=== PATIENT | female | born 1950 | race Caucasian/White ===

== ENCOUNTER 2017-08-29 17:45 | Inpatient (IN) | payer MEDICARE, OTHER ==
[~2017-08-29] VITALS: Ht 160 cm; Wt 100.7 kg
[~2017-08-29 17:45] MED LIST: ACID REDUCER150 MG PO; BUPROPION HCL100 MG PO; BUPROPION HCL200 MG PO; CYCLOBENZAPRINE10 MG PO; FLUZONE IM; LEVOTHROID112 MCG PO; LEXAPRO20 MG PO; LIPITOR20 MG PO; LISINOPRIL10 MG PO; NORCO 5-325 TA1 EACH PO; PERCOCET 5-3251 EACH PO; SERTRALINE HCL100 MG PO
--- NOTE | 2017-08-30 18:05 | EKG ---
[facility] [address] [facility] [place] [address] Signed Sinus tachycardia Low voltage QRS Left posterior fascicular block Abnormal ECG No previous ECGs available Confirmed by PURNIMA GARCIA MD ([id number]) on 08/30/2017 6:05:29 PM Electronically Signed By: PURNIMA GARCIA MD 08/30/17 1805 PATIENT NAME: JANICE AYALA KIA Electrocardiogram DATE OF : 52 PHYSICIAN: PURNIMA GARCIA MD REPORT #: [id number] REPORT IS CONFIDENTIAL AND NOT TO BE RELEASED WITHOUT AUTHORIZATION
--- NOTE | 2017-08-31 08:53 | CONS ---
[facility] [address] [place], [place] [address] Signed DATE OF CONSULTATION: 08/30/2017 CHIEF COMPLAINT: Right pyelonephritis, secondary to partially obstructing large right renal calculus. HISTORY OF PRESENTING ILLNESS: Ms. Ayala is a very pleasant 66-year-old female with no previous history of nephrolithiasis, who presented to the emergency department yesterday evening with a 2-week history of right-sided back and flank pain. She describes this pain as right-sided back pain that radiates to her hip and her ribs. She denied any fevers or chills. However, she was experiencing some anorexia. No nausea or vomiting symptoms, however, she did notice some sudden onset of urgency of urination, but no issues with dysuria. She also denies any hematuria symptoms. Upon presentation to the emergency department, she was evaluated via CT scan and found to have a 1.6 x 1.2 right renal calculus that appeared to be intermittently obstructing the right collecting system. Also on presentation, she was found to have leukocytosis, low blood pressures, and elevated creatinine. She was admitted by Dr. Carleen Rosado for sepsis and remained stable overnight. This morning, she is feeling better, however, she is still tachycardic and mildly hypotensive. REVIEW OF SYSTEMS: All 14-point review of systems were completed and all negative except as listed above. PAST MEDICAL HISTORY: Significant for stage 3 chronic kidney disease, hypertension, diabetes, hypothyroidism, depression, and obesity. PAST SURGICAL HISTORY: The patient is status post hysterectomy and bariatric surgery. She denies any previous history of kidney stone related procedures. SOCIAL HISTORY: The patient lives alone and denies any alcohol or tobacco use. FAMILY HISTORY: Noncontributory at this time. DRUG ALLERGIES: Ibuprofen. MEDICATIONS: Bupropion 100 mg p.o. b.i.d., Lexapro 20 mg daily, atorvastatin 20 mg p.o. at bedtime, Flexeril 10 mg p.o. t.i.d., ranitidine 150 mg p.o. b.i.d., lisinopril 10 mg p.o. daily, levothyroxine 112 mcg p.o. daily, and Percocet 5/325 one to two tablets p.o. q.6 hours p.r.n. pain. PHYSICAL EXAMINATION: CURRENT VITAL SIGNS: Her pulse is in the 100s. She is currently Electronically Signed By: SANGITA WEBB MD 08/31/17 0853 PATIENT NAME: JANICE AYALA CONSULTATION DATE OF : 52 PHYSICIAN: SANGITA WEBB MD REPORT #: [id number] REPORT IS CONFIDENTIAL AND NOT TO BE RELEASED WITHOUT AUTHORIZATION [facility] [address] [place], [place] [address] Signed afebrile. Respirations run from around 12 to 16. Blood pressure is currently running in the low 100 systolic. Oxygen saturations are at 99%. GENERAL: She is awake and alert, in no acute distress. She is sitting up in bed and answering questions appropriately. HEART: Reveals tachycardia, but is otherwise normal. LUNGS: Clear to auscultation bilaterally. ABDOMEN: Obese, but is soft and nondistended. She has some mild tenderness over the right flank area. She is moving all of her extremities equally. LABORATORY DATA: On admission, her white blood cell count was 30.9, hemoglobin 11.7, hematocrit 34.6, and platelets 247. Urinalysis revealed greater than 50 white blood cells per high-powered field, 2+ urine bacteria, 100 protein, negative ketones, and negative nitrites. Her urine culture is pending. Chemistry performed yesterday reveals a sodium 131, potassium 5.5, BUN of 34, creatinine 2.99, and a lactate of 2.6. IMAGING: Her chest x-ray was performed which revealed no acute cardiopulmonary abnormality. Her CAT scan as stated above, reveals no left renal calculi, but there is a 1.6 cm cyst located in the upper pole of the right kidney. There is another cyst located medially in the left kidney, but of most significance is a 1.6 x 1.2 x 1.2 cm stone in the right renal pelvis that is in position to cause intermittent obstruction. Also, noted a significant perinephric stranding around the right kidney. Both ureters were found to be normal down to the level of the bladder. ASSESSMENT: 1. Pyelonephritis, secondary to intermittently obstructing large right renal calculus. 2. Severe sepsis, secondary to acute pyelonephritis. 3. Tcezf-fj-tpswbbq kidney injury. PLAN: The patient has been n.p.o. since last night and has been given appropriate IV antibiotics by Dr. Rosado. I have discussed my plan today for her to undergo cystoscopy with right ureteral stent insertion to relieve the intermittent obstruction of the right kidney due to this large 1.6 cm renal calculus. The risks and benefits of the procedure were discussed with the patient today and she has agreed to proceed. When she is successfully stented, she will continue IV antibiotics and will likely be converted to culture appropriate oral antibiotics once her urine and blood cultures return. Overall, due to the size of stone, the patient will likely require a right-sided percutaneous nephrolithotomy for definitive management of the stone. I explained this to the patient and her family in detail today and answered all their questions. For now, however, we will focus on clearing the patient of active infection and getting her Electronically Signed By: SANGITA WEBB MD 08/31/17 0853 PATIENT NAME: JANICE AYALA CONSULTATION DATE OF : 52 PHYSICIAN: SANGITA WEBB MD REPORT #: [id number] REPORT IS CONFIDENTIAL AND NOT TO BE RELEASED WITHOUT AUTHORIZATION [address] [place], [place] [address] Signed stabilized. In the interim, I will look into who she can see for definitive management of her stone in the future. MD SYDNEY Rivera/MODL /[id number] Electronically Signed By: SANGITA WEBB MD 08/31/17 0853 PATIENT NAME: JANICE AYALA CONSULTATION DATE OF : 52 PHYSICIAN: SANGITA WEBB MD REPORT #: [id number] REPORT IS CONFIDENTIAL AND NOT TO BE RELEASED WITHOUT AUTHORIZATION
--- NOTE | 2017-08-31 08:53 | OR ---
[facility] [address] [place], [place] [address] Signed DATE OF OPERATION: 08/30/2017 SURGEON: Sangita Webb MD PREOPERATIVE DIAGNOSES: 1. Urosepsis due to right pyelonephritis. 2. Intermittently obstructing large right renal calculus. POSTOPERATIVE DIAGNOSES: 1. Urosepsis due to right pyelonephritis. 2. Intermittently obstructing large right renal calculus. NAME OF PROCEDURE: Diagnostic cystoscopy with right ureteral stent insertion. ANESTHESIA: MAC. ESTIMATED BLOOD LOSS: None. COMPLICATIONS: None. SPECIMENS: None. DRAINS: A 6 x 24 cm double-J ureteral stent inserted into the right ureter and a 16-Italian temperature probe catheter inserted into the bladder to gravity drainage. INDICATIONS FOR PROCEDURE: Ms. Ayala is a very pleasant 66-year-old female with no previous history of nephrolithiasis, presented to the emergency department last night with a 2-week history of right-sided back and flank discomfort along with lethargy and poor appetite. She underwent a CT scan, which revealed a large 1.6 cm stone intermittently obstructing the right ureteropelvic junction of the right kidney. CT scan also did reveal no evidence of hydronephrosis, however, did reveal some evidence of perinephric stranding around the right kidney. She also presented to the emergency department hypotensive and tachycardic with a lactic acid of 2.6. She was also noted to be in acute on chronic renal failure. She was admitted by Dr. Rosado and given immediate IV fluid resuscitation along with IV antibiotics. She presents now this morning to undergo cystoscopy with right ureteral stent insertion for decompression of the right collecting system. OPERATIVE FINDINGS: 1. On cystoscopy, there were no evidence of any suspicious masses, lesions, or stones within the bladder. Bilateral ureteral orifices are in their normal anatomic location and effluxing clear urine. 2. A 6 x 24 cm contour double-J ureteral stent was inserted into the right ureter under Electronically Signed By: SANGITA WEBB MD 08/31/17 0853 PATIENT NAME: JANICE AYALA OPERATIVE REPORT DATE OF : 52 PHYSICIAN: SANGITA WEBB MD REPORT #: [id number] REPORT IS CONFIDENTIAL AND NOT TO BE RELEASED WITHOUT AUTHORIZATION [facility] [address] [place] [id number] Signed direct visualization with a [id number] amount of resistance. Ultimately, I was able to get the stent in good position with an adequate proximal coil within the right renal pelvis. DESCRIPTION OF PROCEDURE: After informed consent was obtained, the patient was taken back to the operating room. She was transferred from the [facility] to the operating room table, where MAC anesthesia was induced. She was placed in the dorsal lithotomy position and her genitalia were prepped and draped in a standard sterile fashion. Using a 30-degree lens on a 22-Italian introducer, a rigid cystoscope was inserted through the urethra and into her bladder under direct visualization. Panendoscopic views of the bladder were then obtained. Please see the findings. Attention was turned to the right ureteral orifice. A 0.035 Sensor wire was inserted through the ureteral orifice and up into the right ureter. Fluoroscopy confirmed adequate placement of the wire. Over the wire, a 6 x 24 cm double-J ureteral stent was inserted into the right ureter under direct visualization with a mild amount of resistance. Once the stent was up, I was able to confirm adequate placement via the presence of a proximal coil in the right renal pelvis on fluoroscopy. An adequate distal coil was seen on cystoscopy. The patient's bladder was then drained and a temperature probe catheter was reinserted into her bladder. The procedure was then terminated. The patient tolerated the procedure well without any complications. She will now be transferred to the postanesthesia care unit in stable condition. DISPOSITION: I discussed the details of today's procedure with the patient's family and answered all of their questions. Her diabetic diet will be advanced slowly as tolerated. I anticipate the patient will remain on IV antibiotics at least until she remains afebrile for greater than 24 hours or her cultures return. She will likely be converted to oral antibiotics on discharge. The plan is for the patient to return to clinic in 2-3 weeks with a urinalysis check and to discuss the next plan of care for definitive treatment of her large 1.6 x 1.2 cm right renal calculus. Sangita Webb MD AR/MODL Electronically Signed By: SANGITA WEBB MD 08/31/17 0853 PATIENT NAME: JANICE AYALA OPERATIVE REPORT DATE OF : 52 PHYSICIAN: SANGITA WEBB MD REPORT #: [id number] REPORT IS CONFIDENTIAL AND NOT TO BE RELEASED WITHOUT AUTHORIZATION [address] [address] Signed /[id number] Electronically Signed By: SANGITA WEBB MD 08/31/17 0853 PATIENT NAME: JANICE AYALA KIA OPERATIVE REPORT DATE OF : 52 PHYSICIAN: SANGITA WEBB MD REPORT #: [id number] REPORT IS CONFIDENTIAL AND NOT TO BE RELEASED WITHOUT AUTHORIZATION
[2017-08-31] MEDS ORDERED: LEVOTHYROXINE88 MCG PO (10:42)
[2017-08-31] MEDS ORDERED: DIAZEPAM5 MG PO (10:42)
[2017-08-31] MEDS ORDERED: BUPROPION HCL100 M1 PO (10:44)
--- NOTE | 2017-09-01 13:13 | PR ---
[facility] [address] [facility] [place] [address] Signed DATE OF STUDY: 08/31/2017 SUBJECTIVE: Nursing staff reports today that the patient remained febrile overnight with a T-max of 101.7. She also remained tachycardic through the night; however, her blood pressures remained stable. This morning, the patient describes some symptoms of lethargy, but her appetite is good. She does report discomfort related to her indwelling right ureteral stent; however, it does not seem to be very severe. The nursing staff has not had any issues related to blood in her urine. OBJECTIVE: Current temperature is 101.1 degrees Fahrenheit, T-max was overnight at around 0300 hours at 101.7, pulse rate is in the 100, respiratory rate is in the 18-27, blood pressure 100 to 115 over 40s to 60s. Her pulse ox is ranging anywhere from 90% to 93% on room air. She has had a good deal of urine output, as of this morning it was 2420 mL in the last shift. On exam, she is sitting in her bedside chair. She is awake and alert and in no acute distress. She is answering all questions appropriately. Cardiovascular examination reveals a regular rhythm, but she is tachycardic. Her lungs are clear. Her abdomen is obese and soft. Her Longoria catheter is draining clear yellow urine. LABORATORY DATA: Her blood cultures growing out gram-negative bacilli in both aerobic and anaerobic bottles. White blood cell count is 18.5, down from 25.6 yesterday. Hemoglobin is 9.5, hematocrit 27.4. She still has a bandemia at 13. Her creatinine today is 2.04, down from 2.43 yesterday. ASSESSMENT: 1. Gram-negative urosepsis. 2. Large intermittently obstructing right renal calculus, postoperative day #1, status post cystoscopy with right ureteral stent insertion. PLAN: The patient will be continued to be given IV antibiotics as we await the formal culture results. She is currently eating her regular diet without issue. I have put in for followup for the patient in approximately 2-3 weeks, which I believe now the formal date is September 14. At that time, I will check her urine and then discuss options for definitive management of her large 1.6 cm right renal calculus. *Electronically Signed* 09/01/17 1313 SANGITA WEBB MD PATIENT NAME: JANICE AYALA PROGRESS NOTE DATE OF : 52 PHYSICIAN: SANGITA WEBB MD RPT #: [id number] REPORT IS CONFIDENTIAL AND NOT TO BE RELEASED WITHOUT AUTHORIZATION [facility] [address] [facility] [place], [place] [address] Signed MD SYDNEY Rivera/MODL /[id number] CC: *Electronically Signed* 09/01/17 1313 SANGITA WEBB MD PATIENT NAME: JANICE AYALA PROGRESS NOTE DATE OF : 52 PHYSICIAN: SANGITA WEBB MD RPT #: [id number] REPORT IS CONFIDENTIAL AND NOT TO BE RELEASED WITHOUT AUTHORIZATION
[2017-09-03] MEDS ORDERED: METOPROLOL SUCC25 MG PO (12:45)
[2017-09-03] MEDS ORDERED: FLUTICASONE PRO16 GM NAS (12:45)
[2017-09-03] MEDS ORDERED: BACTRIM DS TAB1 EACH PO (12:46)
== END 2017-09-04 12:55 | disposition home or self-care (01) | DRG 871 ==
LOC: ED 17:45 → CCU 21:08 → MS 09-01 10:40
PROVIDERS: Urology; ADMIT Internal Medicine
PROC: BT16ZZZ Fluoroscopy of Right Ureter (ICD-10-PCS; 2017-08-30)
PROC: 0T768DZ Dilation of Right Ureter with Intraluminal Device, Via Natural or Artificial Opening Endoscopic (ICD-10-PCS; principal; 2017-08-30 10:45)
DX: A40.3 Sepsis due to Streptococcus pneumoniae (principal); R65.20 Severe sepsis without septic shock; N12 Tubulo-interstitial nephritis, not specified as acute or chronic; N17.9 Acute kidney failure, unspecified; E87.2 Acidosis; I47.1 Supraventricular tachycardia; J96.11 Chronic respiratory failure with hypoxia; N11.1 Chronic obstructive pyelonephritis; B96.1 Klebsiella pneumoniae [K. pneumoniae] as the cause of diseases classified elsewhere; E87.5 Hyperkalemia; J32.8 Other chronic sinusitis; E78.5 Hyperlipidemia, unspecified; E03.9 Hypothyroidism, unspecified; F39 Unspecified mood [affective] disorder; G89.4 Chronic pain syndrome; I12.9 Hypertensive chronic kidney disease with stage 1 through stage 4 chronic kidney disease, or unspecified chronic kidney disease; N18.3 Chronic kidney disease, stage 3 (moderate); E11.22 Type 2 diabetes mellitus with diabetic chronic kidney disease; K21.9 Gastro-esophageal reflux disease without esophagitis
CPT/HCPCS: 00910; 36415; 71010; 74176; 74420; 80048; 80053; 81001; 82570; 83605; 83735; 84300; 84484; 85025; 87040; 87077; 87088; 87186; 93005; 93010; 93306; 94668; 94760; 97110; 97116; 97162; 97530; C2617; J0696; J1610; J1650; J2270; J2370; J2405; J2543; J2704; J3010; J3475; J7030; J7120; Q9967

== ENCOUNTER 2017-09-10 01:24 | Observation (INO) | payer MEDICARE, OTHER ==
[~2017-09-10] VITALS: Ht 160 cm; Wt 93.4 kg
[~2017-09-10 01:24] MED LIST changes: +BACTRIM DS TAB1 EACH PO; +BUPROPION HCL100 M1 PO; +DIAZEPAM5 MG PO; +FLUTICASONE PRO16 GM NAS; +LEVOTHYROXINE88 MCG PO; +METOPROLOL SUCC25 MG PO
--- NOTE | 2017-09-10 04:25 | NUR ---
66YR OLD WOMAN ADMITTED FROM ER VIA STRETCHER TO ROOM 113. PT IS ALERT, ORIENTED ABLE TO STAND AND TRANSFER ONTO BED WITH SBA. REQUESTED WARM BLANKET FOR COMFORT. DENIES NAUSEA AT THIS TIME, DENIES PAIN. POSITIONED FOR COMFORT. ORIENTED TO ROOM AND CALL LIGHT. DENIES NEED TO VOID. STATES SHE JUST WANTS TO REST. ORDERS NOTED.
--- NOTE | 2017-09-10 05:05 | NUR ---
UP TO BSC TO VOID, 200ML YELLOW URINE.
--- NOTE | 2017-09-10 07:15 | NUR ---
RECIEVED BEDSIDE REPORT FROM WALTER YUAN. PT SITTING UP IN RECLIENR. REPORTED NAUSEA, DRY HEAVED. NO EMESIS. NO ORDERS FOR ANTI NAUSEA MEDICATIONS ON EMAR. CALLED DR. BATEMAN, NOTIFIED HER OF ABOVE NOTED. RECIEVED TORB FOR ZOFRAN 4 MG IV Q 6 HOURS PRN NAUSEA.
--- NOTE | 2017-09-10 08:08 | NUR ---
PATIENT REFUSED SHOWER TODAY DO TO NOT FEELING WELL. WASHED HER FACE. NOW LAYING IN BED.
--- NOTE | 2017-09-10 09:31 | NUR ---
PT IN BED, ASSISTED FROM BED TO BEDSIDE COMMODE, 1 PERSON ASSIST WITH FWW. PT SLIGHTLY UNSTEADY. DENIED DIZZINESS OR LIGHTHEADEDNESS. PT C/O NAUSEA, GAVE ZOFRAN 4 MG IV PRN. ALSO C/O ABDOMINAL PAIN, GAVE ACETAMINOPHEN 350 MG PO PRN. PT BACK TO BED WITH FWW WITH 1 PERSON ASSIST. REQUIRES VERBAL CUES TO USE FWW APROPRIATELY. PT DENIED OTHER NEEDS.
--- NOTE | 2017-09-10 10:18 | NUR ---
PT IN BED, SLEEPING SOUNDLY. NO S/S DISTRESS OR DISCOMFORT.
--- NOTE | 2017-09-10 12:20 | NUR ---
DR. BATEMAN IN TO SEE PT. PT C/O 03/11 ABDOMINAL PAIN. GAVE PT NORCO 5/325 MG 1 TAB PO PRN. PT DENIED OTHER NEEDS. IS SITTING UP IN BED, POSITIONED SELF. DENIED NEED TO USE BATHROOM. PERSONAL SUPPLIES IN REACH, WELL CALL BUTTON.
--- NOTE | 2017-09-10 14:03 | NUR ---
PT WAS UP TO BATHROOM, VOIDED IN TOILET, MISSED HAT, VOIDED URINE. BACK TO BED WITH FWW WITH 1 PERSON ASSIST. PT RATED PAIN TO ABDOMEN 1-2/10 TO ABDOMEN, STATED THAT SHE FEELS MUCH BETTER. PT SITTING IN BED, POSITIONED SELF WITH HOB ELEVATED. CALL LIGHT AT SIDE, PERSONAL SUPPLIES ON TRAY TABLE AT BEDSIDE. PT DENIED FURTHER NEEDS.
--- NOTE | 2017-09-10 15:16 | NUR ---
PT SITTING UP IN RECLINER. C/O NAUSEA, GAVE ZOFRAN 4 MG IV PRN. C/O 7/10 ABDOMINAL PAIN, GAVE NORCO 5/325 MG 1 TAB PO PRN. PERSONAL SUPPLIES AT SIDE, CALL LIGHT IN REACH. DENIED NEED TO GO TO THE BATHROOM.
--- NOTE | 2017-09-10 16:10 | NUR ---
PT AND PT'S SISTER IN PT'S ROOM. PT GRIMACING, C/O CONTINUED PAIN TO ABDOMEN, AND CONTINUED NAUSEA. PT'S SISTER STATED THAT SHE IS NOT OK WITH THE CARE THAT PT HAS BEEN RECIEVING, THAT SHE DOES NOT FEEL THAT PT IS RECIEVING ADEQUATE PAIN CONTROL. EDUCATED PT AND HER SISTER REGARDING THE START OF NORCO FOR PAIN TODAY. ALSO CALLED DR. GARCIA, ASKED THAT HE COME TO SEE PT. DR. GARCIA STATED THAT HE IS UNABLE TO AT THIS TIME. STATED THAT HE WOULD PLACE ORDER FOR FURTHER ANTI NAUSEA MEDICATION FOR CONTINUE C/O NAUSEA.
--- NOTE | 2017-09-10 17:35 | NUR ---
DR. GARCIA IN TO SEE PT. PT'S NIECE IN WITH PT. DR. GARCIA ASSESSED PT. STATED THAT HE WILL ENTER ORDER FOR GI COCKTAIL. PT REPORTED PAIN TO UPPER ABDOMEN 03/11.
--- NOTE | 2017-09-10 18:34 | NUR ---
PT HAS HAD NAUSEA, WITH DRY HEAVING OFF AND ON THIS SHIFT. HAD PRN ZOFRAN, THEN PRN PHENERGAN FOR THIS. ALSO HAD C/O PAIN TO UPPER ABDOMEN, STARTED PRN NORCO, HAD 2 DOSES, 1 TAB EACH. HAS A 20 G FIELD START TO RIGHT HAND, ATTEMPTED TO START NEW IV, AND CHIEF DIETITIAN ATTEMPTED TO START IV, UNSUCCESSFUL. ORDER OBTAINED THAT IT IS OK TO LEAVE FIELD START IV IN. PT UP WIHT 1 PERSON ASSIST WITH FWW, REQUIRES VERBAL CUES TO USE FWW APROPRIATELY. ALERT, ORIENTED X 4, BUT FORGETFUL AT TIMES. TO START SODIUM BICARBONATE 75 MEQ, 0.45% NS AT 125 ML/HR.
--- NOTE | 2017-09-10 19:05 | NUR ---
RECEIVED REPORT FROM RN. PATIENT IS RESTING COMFORTABLY IN BED, BREATHING IS EVEN AND UNLABORED ON 2L O2. DENIES NAUSEA, PAIN IS WELL CONTROLLED. CALL LIGHT WITHIN REACH.
--- NOTE | 2017-09-10 21:30 | NUR ---
PATIENT IS RESTING COMFORTABLY, BREATHING IS EVEN AND UNLABORED. PATIENT DENIES PAIN AND NAUSEA AT THIS TIME. DENIES NEEDS. ASSESSMENT DONE. CALL LIGHT WITHIN REACH.
--- NOTE | 2017-09-10 22:00 | NUR ---
PATIENT REPORTS PAIN FLANK PAIN. PATIENT WAS REPOSITIONED AND PLACED IN CHAIR, PRN TYLENOL GIVEN PER EMAR BY KWABENA WATSON.
--- NOTE | 2017-09-11 | NUR ---
PATIENT IS RESTING COMFORTABLY IN BED, BREATHING IS EVEN AND UNLABORED ON 2L O2 VIA NC. FLACC SCORE OF 0, NO SIGNS OF DISTRESS. CALL LIGHT WITHIN REACH.
--- NOTE | 2017-09-11 02:53 | NUR ---
PATIENT RESTING COMFORTABLY IN BED, BREATHING IS EVEN AND UNLABORED ON 2L O2 VIA NC. ASSISTED TO BATHROOM WITH 1PA/FWW/NON-SLIP SOCKS. PATIENT RATES PAIN 0/10 AND DENIES NAUSEA. NO OTHER NEEDS AT THIS TIME. ASSESSMENT DONE, CALL LIGHT WITHIN REACH.
--- NOTE | 2017-09-11 02:56 | NUR ---
PATIENT CALLED AND WANTED A PAIN MEDICATION, NURSE NOTIFIED.
--- NOTE | 2017-09-11 03:00 | NUR ---
PATIENT REPORTS 4/10 PAIN IN LOWER BACK. PRN TYLENOL WITH CODEINE GIVEN PER EMAR. DENIES FURTHER NEEDS AT THIS TIME. CALL LIGHT WITHIN REACH.
--- NOTE | 2017-09-11 05:20 | NUR ---
PATIENT'S NIGHT WAS UNEVENTFUL. SHE HAS BEEN RESTING COMFORTABLY THROUGHOUT SHIFT. VSS, PAIN HAS BEEN WELL CONTROLLED WITH PRN TYLENOL WITH CODEINE. NO COMPLAINTS OF NAUSEA THIS SHIFT. SBA/FWW, 2L O2 VIA NC. HAS IV FLUIDS. NO ACUTE CHANGES FROM BEGINNING OF SHIFT ASSESSMENT.
--- NOTE | 2017-09-11 05:22 | NUR ---
PATIENT RESTING COMFORTABLY IN BED, BREATHING IS EVEN AND UNLABORED. FLACC SCORE OF 0. CALL LIGHT WITHIN REACH.
--- NOTE | 2017-09-11 07:01 | NUR ---
PATIENT CALLED TO USE THE BATHROOM, 1 PERSON ASSIST. PATIENT IS UP IN THE CHAIR. CALL LIGHT IS WITHIN REACH.
--- NOTE | 2017-09-11 07:25 | NUR ---
RECIEVED CHAIR SIDE REPORT FROM WALTER PAIZ. PT SITTING UP IN RECLINER, SLEEPING. AROUSED TO VERBAL STIMULI, STATED THAT SHE IS FEELING OK AT THIS TIME. DENIED NEEDS.
--- NOTE | 2017-09-11 08:11 | NUR ---
PT AWAKE IN CHAIR. WET WASH CLOTH. AM CARE. PICKED UP ROOM. MESHA FORD DID BLOOD SURGAR.
--- NOTE | 2017-09-11 08:40 | NUR ---
PT STILL HAS NOT HAD A BM. GAVE BISACODYL SUPPOSITORY FOR CONTINUED CONSTIPATION. DID NOT FEEL FECAL IMPACTION. PT HAS ACTIVE BOWEL TONES X 4 QUADRANTS. PT DENIES ABDOMINAL PAIN, DENIES NAUSEA.
--- NOTE | 2017-09-11 09:43 | NUR ---
PT SITTING UP IN RECLINER. PT DENIES NAUSEA OR PAIN. DENIES NEEDS. REPORTS THAT SHE DOES NOT YET FEEL THE URGE TO VOID.
--- NOTE | 2017-09-11 10:50 | NUR ---
PT UP IN RECLINER, SLEEPING SOUNDLY, NO S/S DISTRESS OR DISCOMFORT. PERSONAL SUPPLIES IN REACH, CALL LIGHT AT SIDE.
--- NOTE | 2017-09-11 11:24 | NUR ---
PT REQUESTED TO ADVANCE DIET, DENIED NAUSEA. DR. GARCIA APPROVED ADVANCING PT TO FULL LIQUID DIET.
--- NOTE | 2017-09-11 11:34 | NUR ---
PT SITTING UP IN BED, TALKING ON PHONE. CHECKED BG, 97, NO SLIDING SCALE INSULIN INDICATED. PT C/O BACK PAIN.
--- NOTE | 2017-09-11 11:39 | NUR ---
GAVE ACETAMINOPHEN WITH CODEINE TABLET PRN C/O RIGHT LOWER BACK PAIN. PT DENIED OTHER NEEDS.
--- NOTE | 2017-09-11 12:42 | NUR ---
PT SITTING UP IN RECLINER. ATE 75% OF FULL LIQUID LUNCH. DENIES NAUSEA, DENIES PAIN. HAS PERSONAL SUPPLIES AND CALL BUTTON IN REACH. DENIES NEEDS.
--- NOTE | 2017-09-11 12:45 | NUR ---
TOOK PT TO BATHROOM CHANGED LINENS
--- NOTE | 2017-09-11 14:26 | NUR ---
PT IN BED, HOB ELEVATED, WATCHING TV. GAVE SCHEDULED MEDICATIONS. PT DENIED NAUSEA, DENIED PAIN. HAS PERSONAL SUPPLIES IN REACH, CALL BUTTON IN REACH.
--- NOTE | 2017-09-11 14:39 | NUR ---
PT UP AMBULATING IN HALLS WITH MARKY, PHYSICAL THERAPIST, USING GAIT BELT, NO WALKER. PT TOLERATING WELL THUS FAR.
--- NOTE | 2017-09-11 15:58 | NUR ---
TALKED WITH PT REGARDING THE MEDICARE OUTPATIENT OBSERVATION NOTICE. WENT OVER THIS WITH THE PT AND SHE SIGNED IT. ORIGINAL TO PT CHART, COPY TO THE PT.
--- NOTE | 2017-09-11 16:09 | NUR ---
NOTIFIED DR. GARCIA THAT PT'S BP HAS BEEN TRENDING DOWN, WITH LAST BP 96/44. ASKED MEDICAL LAB SPECIALIST TO RECHECK USING MANUAL BP.
--- NOTE | 2017-09-11 16:15 | NUR ---
TALKED WITH JANICE AND HER NIECE LU ABOUT HER BEING DC TOMORROW AND IF THE FAMILY AND PT WERE GOING TO BE MORE OPEN WITH EACH OTHER REGARDING THE PT NEEDING HELP, BE IT WITH GROCERIES, COOKING, GETTING UP AND ABOUT, RUNNING OUT OF WATER, NEEDING TRANSPORTATION TO THE DR. PT STATED SHE WOULD BE MORE OPEN AND ASK HER FAMILY FOR HELP. LU SAID SHE WOULD REALLY LOOK AT WHAT HER AUNT MIGHT BE NEEDING INSTEADY OF JUST TAKING HER WORD FOR IT. BOTH FEEL THAT SHE IS SAFE TO RETURN HOME TOMORROW.
--- NOTE | 2017-09-11 16:36 | NUR ---
TOOK PT WALKING IN THE HALLWAY, SHE DID TWO LAPS AROUND THE HALLWAY, DID GREAT WITH NO COMPLAINTS. USED THE WALKER. CALL LIGHT IN PLACE
--- NOTE | 2017-09-11 16:59 | NUR ---
TOOK PT TO THE RESTROOM. FRESH ICE WATER. PT WANTS TO BE ON REG DIET, ASKED DR GARCIA.
--- NOTE | 2017-09-11 19:15 | NUR ---
PATIENT IS RESTING COMFORTABLY IN BED, BREATHING IS EVEN AND UNLABORED ON ROOM AIR. FLACC SCORE OF 0. CALL LIGHT WITHIN REACH.
--- NOTE | 2017-09-11 21:05 | NUR ---
PATIENT RESTING COMFORTABLY IN CHAIR, BREATHING IS EVEN AND UNLABORED ON ROOM AIR. PATIENT REPORTS 6/10 PAIN IN HIPS AND LEFT KNEE. PRN TYLENOL WITH CODEINE GIVEN. PATIENT DENIES FURTHER NEEDS AT THIS TIME. ASSESSMENT DONE, MEDICATIONS GIVEN. CALL LIGHT WITHIN REACH.
--- NOTE | 2017-09-11 21:23 | NUR ---
UPDATED DR. GARCIA ABOUT REMOVING PATIENT'S IV DUE TO NOT BEING PATENT ANYMORE. DR. GARCIA STATED THAT PATIENT DOES NOT NEED NEW IV AND TO SWITCH IV PRN ZOFRAN AND PHENERGAN TO PO. NO OTHER ORDERS.
--- NOTE | 2017-09-11 23:46 | NUR ---
PATIENT RESTING COMFORTABLY IN BED, BREATHING IS EVEN AND UNLABORED. FLACC SCORE OF 0. CALL LIGHT WITHIN REACH.
--- NOTE | 2017-09-12 01:32 | NUR ---
PATIENT RESTING COMFORTABLY IN BED, BREATHING IS EVEN AND UNLABORED. CALL LIGHT WITHIN REACH.
--- NOTE | 2017-09-12 02:33 | NUR ---
PATIENT CALLED TO USE THE BATHROOM. 1 PERSON STANDBY ASSIST. PATIENT IS BACK IN BED. CALL LIGHT IS WITHIN REACH.
--- NOTE | 2017-09-12 02:40 | NUR ---
MANUAL BLOOD PRESSURE OF 90/46 NOTED. PATIENT IS RESTING COMFORTABLY IN BED, DENIES FEELING LIGHT HEADED. ASYMPTOMATIC AT THIS TIME. WILL CONTINUE TO MONITOR. PATIENT STATES PAIN IS 0/10, NO NAUSEA. DENIES NEEDS AT THIS TIME. CALL LIGHT WITHIN REACH, ASSESSMENT DONE.
--- NOTE | 2017-09-12 02:49 | NUR ---
CALLED DR. GARCIA REGARDING BLOOD PRESSURE OF 90/46. NO NEW ORDERS AT THIS TIME. WILL CONTINUE TO MONITOR.
--- NOTE | 2017-09-12 05:16 | NUR ---
PATIENT'S NIGHT WAS MOSTLY UNEVENTFUL. PAIN HAS BEEN WELL CONTROLLED WITH PRN TYLENOL WITH CODEINE. PATIENT HAD BP OF 90/46 LAST NIGHT, DR. GARCIA WAS MADE AWARE AND NO INTERVENTIONS WERE ORDERED. PATIENT REMAINS ASYMPTOMATIC. ALL OTHER VITALS STABLE. PATIENT'S IV WAS REMOVED DUE TO INFILTRATION, NO NEW IV PLACED PER DR. GARCIA. PATIENT IS TOLERATING DIET WELL WITHOUT COMPLAINTS OF NAUSEA LAST NIGHT. SHE IS A SBA/FWW, WEARS 2L O2 FOR SLEEP. NO ACUTE CHANGES FROM BEGINNING OF SHIFT ASSESSMENT. OVERALL, PATIENT IS DOING WELL.
--- NOTE | 2017-09-12 05:30 | NUR ---
PT CALLED TO USE THE BATHROOM WITH DESMOND CHENG. ONCE BACK IN BED, PT COMPLAINED OF RIGHT LOWER BACK PAIN, "WHERE THE KIDNEY STONE" IS. MED WITH MAXIM#3. FRESH WATER GIVEN. PT HAS NO OTHER NEEDS, CALL LIGHT WITHIN REACH.
--- NOTE | 2017-09-12 06:19 | NUR ---
PATIENT RESTING COMFORTABLY IN BED, BREATHING IS EVEN AND UNLABORED. DENIES NEEDS AT THIS TIME. ADMINISTERED MORNING MEDICATION, ADMINISTERED SUPPOSITORY. CALL LIGHT WITHIN REACH.
--- NOTE | 2017-09-12 07:39 | NUR ---
PT AWAKE AND SITTING UP IN CHAIR. NO IV PER . RA. PT WOULD LIKE A REAL ESTATE TEACHER CONSULT FOR MULTIPLE QUESTIONS ABOUT HER DIET. WILL ALERT DR. GARCIA.
--- NOTE | 2017-09-12 08:02 | NUR ---
PT AWAKE IN CHAIR. TOOK HER TO THE BATHROOM. AM CARE. SET UP FOR BRK
--- NOTE | 2017-09-12 09:40 | NUR ---
PT HAS NOW HAD MULTIPLE BOUTS OF LOOSE STOOL AND HAS REQUESTED TO NOT HAVE THE LAXATIVES AGAIN. IN BED AND IS INDEPENDENT INT HE ROOM.
--- NOTE | 2017-09-12 10:01 | NUR ---
MED REC COMPLETE WITH REFILL HISTORY AND PATIENT'S PREVIOUS DISCHARGE LESS THAN ONE WEEK PRIOR.
[2017-09-12] MEDS ORDERED: CEPHALEXIN500 MG PO (10:19)
[2017-09-12] MEDS ORDERED: OMEPRAZOLE20 MG PO (10:20)
--- NOTE | 2017-09-12 10:24 | NUR ---
CALLED HERNANDO IN NUTRITION FOR CONSULT. STATES SHE WILL BE UP IN A FEW MINUTES.
--- NOTE | 2017-09-12 11:01 | NUR ---
FAXED CHART NOTES INCLUDING FACESHEET, ORDER FOR RESUMPTION OF SERVICES, H AND P, DC SUMMARY TO HOME HEALTH. ALSO CALLED AND TALKED WITH ARIE REGARDING THIS FAX.
--- NOTE | 2017-09-12 11:30 | NUR ---
PATIENT CALLED FOR PAIN PILL
--- NOTE | 2017-09-12 11:52 | NUR ---
MET WITH PATIENT IN HER ROOM. SHE IS BY HERSELF. LOW-SODIUM DIET IS NEW FOR HER. SHE HAS DIABETES. 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 SHE DOESN'T EAT A LOT OF PACKAGED FOODS, BUT DOES LIKE TO MAKE SOUP USING HOT AND SPICY V8 JUICE WHICH IS NOT LOW SODIUM. I RECOMMENDED SHE START USING HALF OF THE HOT AND SPICY V8 AND HALF OF LOW SODIUM V8 FOR A COUPLE OF WEEKS. THEN, PERHAPS SHE CAN MAKE THE SWITCH TO ALL HER SOUPS BEING MADE WITH LOW SODIUM V8. I GAVE HER A LIST OF LOW-SODIUM FOODS TO USE MORE OFTEN. GROCERY LIST PROVIDED AND LOW SODIUM SNACK LIST PROVIDED WELL. WE TALKED ABOUT HOW TO EAT FOODS THAT ARE GOOD FOR BOTH DIABETES AND LOW SODIUM. PLAIN RICE IS FINE, JUST HAVE TO STICK TO 1/2 CUP, FOR EXAMPLE. PATIENT HAS GOOD UNDERSTANDING. SHE APPRECIATED MY HELP. MY NAME AND OFFICE # PROVIDED IN CASE FURTHER QUESTIONS ARISE.
--- NOTE | 2017-09-12 12:34 | NUR ---
PT EDUCATION GIVEN. WRITTEN AND VERBAL. FOLLOW UP APPT. REINFORCED IMPORTANCE OF GOING. VS STABLE. NO IV TO REMOVE. BELONGINGS RETURNED.
== END 2017-09-12 12:30 | disposition home or self-care (01) ==
LOC: ED 01:24 → MS 04:00
PROVIDERS: ADMIT Internal Medicine
DX: N17.9 Acute kidney failure, unspecified (principal); E86.0 Dehydration; E11.22 Type 2 diabetes mellitus with diabetic chronic kidney disease; I12.9 Hypertensive chronic kidney disease with stage 1 through stage 4 chronic kidney disease, or unspecified chronic kidney disease; N18.3 Chronic kidney disease, stage 3 (moderate); F32.9 Major depressive disorder, single episode, unspecified; E78.5 Hyperlipidemia, unspecified; K29.00 Acute gastritis without bleeding; E87.2 Acidosis; B96.1 Klebsiella pneumoniae [K. pneumoniae] as the cause of diseases classified elsewhere; N12 Tubulo-interstitial nephritis, not specified as acute or chronic; J96.11 Chronic respiratory failure with hypoxia; E03.9 Hypothyroidism, unspecified; G89.29 Other chronic pain; M54.9 Dorsalgia, unspecified; Z88.8 Allergy status to other drugs, medicaments and biological substances; Z79.51 Long term (current) use of inhaled steroids; Z79.899 Other long term (current) drug therapy; Z87.442 Personal history of urinary calculi
CPT/HCPCS: 36415; 71010; 74000; 80048; 80053; 81001; 83605; 83690; 85025; 96361; 96374; 96375; 96376; 97110; 97162; 97165; 99285; G0378; G8987; G8989; J0696; J1200; J2405; J2550; J2765; J7030

== ENCOUNTER 2017-10-23 07:20 | Day surgery (SDC) | payer MEDICARE, OTHER ==
[~2017-10-23] VITALS: Ht 160 cm; Wt 94.3 kg
[~2017-10-23 07:20] MED LIST changes: +CEPHALEXIN500 MG PO; +OMEPRAZOLE20 MG PO
[2017-10-23] MEDS ORDERED: VALIUM5 MG PO (07:47)
[2017-10-23] MEDS ORDERED: TYLENOL WITH C1 EACH PO (07:48)
--- NOTE | 2017-10-23 11:23 | NUR ---
10/23/17 1123 Radha,Avl 1056 RESP EVEN AND UNLABORED.
--- NOTE | 2017-10-23 12:44 | NUR ---
LE 1205: PT ARRIVED FROM PACU, PT AWAKE AND TALKING. DENIES PAIN AND NAUSEA. REPORT RECVD FROM RN. NO FURTHER NEEDS AT THIS TIME. WATER AND CHICKEN BROTH GIVEN. LE 1230: PT UP TO BEDSIDE COMMODE, TRANFERED WELL WITH STANDBY ASSIST. ASSISTED BACK TO BED, SCDS IN PLACE. NO FURTHER NEEDS AT THIS TIME. CALL LIGHT IN REACH.
--- NOTE | 2017-10-25 13:45 | OR ---
[facility] [address] [place], [place] [address] Signed DATE OF OPERATION: 10/23/2017 SURGEON: Sangita Webb MD PREOPERATIVE DIAGNOSES: 1. Large right renal calculus. 2. History of urosepsis, status post right ureteral stent insertion. 3. Active Klebsiella urinary tract infection. POSTOPERATIVE DIAGNOSES: 1. Large right renal calculus. 2. History of urosepsis, status post right ureteral stent insertion. 3. Active Klebsiella urinary tract infection. NAMES OF PROCEDURES: Diagnostic cystoscopy with right ureteral stent exchange. ANESTHESIA: General. ESTIMATED BLOOD LOSS: None. COMPLICATIONS: None. SPECIMENS: None. INDICATIONS FOR PROCEDURE: Ms. Ayala is a very pleasant 66-year-old female, who underwent cystoscopy with right ureteral stent insertion in late August 2017 after being found to have urosepsis due to an approximately 1.6 cm intermittently obstructing right renal calculus. She has had a stent in place since that time and recently was put on the schedule to undergo extracorporeal shock wave lithotripsy of her right renal calculus. On October 16, 2017, she was found to have a Klebsiella UTI at that time, for which she was given Bactrim Double Strength. She presents today to undergo ESWL along with right ureteral stent exchange. However, the ESWL was canceled due to the fact that she still has an active urinary tract infection. ESWL is actually contraindication in these patients, so it was canceled. We made a decision to go ahead with the cystoscopy with right ureteral stent Electronically Signed By: SANGITA WEBB MD 10/25/17 1345 PATIENT NAME: JANICE AYALA OPERATIVE REPORT DATE OF : 52 PHYSICIAN: SANGITA WEBB MD REPORT #: [id number] REPORT IS CONFIDENTIAL AND NOT TO BE RELEASED WITHOUT AUTHORIZATION [facility] [address] [place], [place] [address] Signed exchange today in anticipation of ESWL once her UTI is cleared. OPERATIVE FINDINGS: 1. On cystoscopy, there is no evidence of any suspicious masses, lesions, or stones within the bladder. She has an indwelling right ureteral stent in place that is mildly calcified. 2. The 6 x 24 cm indwelling ureteral stent was removed fully intact in its place. A 5 x 24 cm contour double-J ureteral stent was inserted in the right ureter under direct visualization without difficulty. DESCRIPTION OF PROCEDURE: After informed consent was obtained, the patient was taken back to the operating room. She was transferred from the [facility] to operating room table, where general anesthesia was induced. She was placed in the dorsal lithotomy position and her genitalia were prepped and draped in the standard sterile fashion. Using a 30-degree lens on a 22-Mongolian introducer, rigid cystoscope was inserted through the urethra and into her bladder under direct visualization. Panendoscopic views of the bladder were then obtained. Please see above findings. Attention was turned to the indwelling right ureteral stent. The stent graspers were used to remove the stent to the level of the urethral meatus. A wire was inserted into the lumen of the indwelling stent up to the right collecting system. The stent was removed, leaving the wire in place. Over the wire, a 5 x 24 cm contour double-J ureteral stent was inserted into the patient's ureter under direct visualization without difficulty. Once I was able to confirm good placement of the stent, the wire was pulled and adequate proximal coil was seen within the right renal pelvis. An adequate distal stent coil was seen on the bladder via cystoscopy. The patient's bladder was then drained and the cystoscope was removed. The procedure was then terminated. The patient tolerated the procedure well without any complication. She will now be transferred to the postanesthesia care unit in stable condition. DISPOSITION: I discussed the details of today's procedure with the patient's sister and answered all of her questions. She will be sent home today with Augmentin for a total of 10 days. The urine obtained in the OR today will be sent for culture to be sure that the organism is still sensitive to Augmentin. She has been placed back on the OR, scheduled to undergo right-sided ESWL on November 06, 2017. Sangita Webb MD Electronically Signed By: SANGITA WEBB MD 10/25/17 1345 PATIENT NAME: JANICE AYALA OPERATIVE REPORT DATE OF : 52 PHYSICIAN: SANGITA WEBB MD REPORT #: [id number] REPORT IS CONFIDENTIAL AND NOT TO BE RELEASED WITHOUT AUTHORIZATION [address] [place] [address] Signed AR/MODL /[id number] Electronically Signed By: SANGITA WEBB MD 10/25/17 1345 PATIENT NAME: AROLDO AYALADelmy ADAM OPERATIVE REPORT DATE OF : 52 PHYSICIAN: SANGITA WEBB MD REPORT #: [id number] REPORT IS CONFIDENTIAL AND NOT TO BE RELEASED WITHOUT AUTHORIZATION
== END 2017-10-23 13:30 | disposition home or self-care (01) ==
LOC: OPS 07:20 → DS 07:20 → OPS 09:00
PROVIDERS: Urology
PROC: 0T9680Z Drainage of Right Ureter with Drainage Device, Via Natural or Artificial Opening Endoscopic (ICD-10-PCS; principal; 2017-10-23 09:00)
DX: N13.2 Hydronephrosis with renal and ureteral calculous obstruction (principal); E07.9 Disorder of thyroid, unspecified; N39.0 Urinary tract infection, site not specified; B96.1 Klebsiella pneumoniae [K. pneumoniae] as the cause of diseases classified elsewhere; N28.9 Disorder of kidney and ureter, unspecified; M19.90 Unspecified osteoarthritis, unspecified site; E11.9 Type 2 diabetes mellitus without complications; E78.00 Pure hypercholesterolemia, unspecified; F32.9 Major depressive disorder, single episode, unspecified; Z90.710 Acquired absence of both cervix and uterus; Z98.890 Other specified postprocedural states; Z79.899 Other long term (current) drug therapy
CPT/HCPCS: 00910; 74018; 81001; 87077; 87088; 87186; C2617; J0690; J0696; J1100; J1885; J2250; J2405; J2704; J2765; J3010

== ENCOUNTER 2017-11-06 07:13 | Day surgery (SDC) | payer MEDICARE, OTHER ==
[~2017-11-06] VITALS: Ht 160 cm; Wt 94.3 kg
[~2017-11-06 07:13] MED LIST changes: +TYLENOL WITH C1 EACH PO; +VALIUM5 MG PO
--- NOTE | 2017-11-06 08:31 | NUR ---
PT ALERT, ORIENTED AND SUPPORTED BY HER SISTER. SHE SEEMED PREPARED, FEW, IF ANY QUESTIONS. PT REQUESTED PRAYER, WILL FOLLOW NEEDED
--- NOTE | 2017-11-06 10:01 | NUR ---
11/06/17 Juan1 Val Garcia 0939 RESP EVEN AND UNLABORED. 0944 O2 DECREASED TO 6L, O2 SAT 100% 0950 O2 REMOVED. 0952 AT BEDSIDE.
--- NOTE | 2017-11-06 10:52 | NUR ---
PT CALLED NEEDING TO USE THE RESTROOM. AMBULATED TO RESTROOM, TOLERATED WELL. DENIES DIZZINES. 250 MLS OF RED URINE NOTED. PT ASSISTED BACK TO BED. DENIES PAIN. IV SL. PT GIVEN PUDDING AND CRACKER. SITTING AT BEDSIDE, SISTER AT BEDSIDE. CALL LIGHT IN REACH.
--- NOTE | 2017-11-06 12:13 | NUR ---
LE 1115: IN TO CHECK ON PT, PT AWAKE TALKING TO SISTER. PT DENIES PAIN AND NAUSEA. PT STATES SHE IS READY FOR DISCHARGE. IV SITE DC'D. PT DRESSED WITH ASSISTANCE FROM SISTER, TOLERATES WELL. DC INSTRUCTIONS GIVEN, PT SHOWS UNDERSTANDING. PT AMBULATES TO , TOLERATES WELL.
--- NOTE | 2017-11-13 08:46 | OR ---
[facility] [address] [place], [place] [address] Signed DATE OF OPERATION: 11/06/2017 SURGEON: Sangita Webb MD PREOPERATIVE DIAGNOSES: 1. Right renal calculus. 2. History of urosepsis. POSTOPERATIVE DIAGNOSES: 1. Right renal calculus. 2. History of urosepsis. NAMES OF PROCEDURES: Right extracorporeal shock wave lithotripsy. ANESTHESIA: General. ESTIMATED BLOOD LOSS: None. COMPLICATIONS: None. SPECIMENS: None. INDICATIONS FOR PROCEDURE: Brigitte is a very pleasant 66-year-old female, who is well known to me. She presented to [facility] in late August 2017 with urosepsis due to an intermittently obstructing 1.5 cm right renal calculus. At that time, she underwent cystoscopy with right ureteral stent insertion, along with aggressive IV antibiotics and fluid resuscitation. She presented recently to undergo extracorporeal shock wave lithotripsy, however, that procedure was canceled due to active UTI. She since been on culture appropriate oral antibiotics and presents today to undergo right extracorporeal shock wave lithotripsy. Her indwelling right ureteral stent was exchanged last week without incident. OPERATIVE FINDINGS: 1. Fluoroscopic imaging of the stone reveals an approximately 1.2 cm right renal Electronically Signed By: SANGITA WEBB MD 11/13/17 0846 PATIENT NAME: BRIGITTE AYALA [facility] OPERATIVE REPORT DATE OF : 52 PHYSICIAN: SANGITA WEBB MD REPORT #: [id number] REPORT IS CONFIDENTIAL AND NOT TO BE RELEASED WITHOUT AUTHORIZATION [facility] [address] [place], [place] [address] Signed calculus. The coil from the indwelling ureteral stent is present within the right renal pelvis. 2. The stone was fragmented with a Lithotripter with a range in energy of 2 to 7.5 units at a rate of 60 to 90 hertz for a total of 297.8 SMLI. The stone was given a total of 2505 shocks. The patient tolerated the procedure well and there was no complication. DESCRIPTION OF PROCEDURE: After informed consent was obtained, the patient was taken back to the operating room. She was transferred from the [facility] to the operating room table, where general anesthesia was induced. She was placed over the F1 noted with Lithotripter and fluoroscopic images were obtained in order to place the right renal calculus within the cross-hairs of the Lithotripter. Extracorporeal shock wave lithotripsy was then initiated. Please see above findings. After a total of 2505 shocks, the procedure was terminated. The patient tolerated the procedure well without any complication. She will now be transferred to the postanesthesia care unit in stable condition. DISPOSITION: The patient will be discharged to home today in stable condition. She was told to continue her current oral antibiotic regimen and she was given Percocet 5/325, dispense #30, as needed for pain today. She is going to be placed back on the OR schedule November 20 to undergo right ureteroscopy, laser lithotripsy, basket extraction of stones, along with a right ureteral stent exchange. Sangita Webb MD AR/MODL /[id number] Electronically Signed By: SANGITA WEBB MD 11/13/17 0846 PATIENT NAME: BRIGITTE AYALA KIA OPERATIVE REPORT DATE OF : 52 PHYSICIAN: SANGITA WEBB MD REPORT #: [id number] REPORT IS CONFIDENTIAL AND NOT TO BE RELEASED WITHOUT AUTHORIZATION
== END 2017-11-06 11:25 | disposition home or self-care (01) ==
LOC: OPS 07:13 → DS 07:13 → OPS 09:00
PROVIDERS: Urology
PROC: 0TF3XZZ Fragmentation in Right Kidney Pelvis, External Approach (ICD-10-PCS; principal; 2017-11-06 09:00)
DX: N20.0 Calculus of kidney (principal); F32.9 Major depressive disorder, single episode, unspecified; E11.22 Type 2 diabetes mellitus with diabetic chronic kidney disease; N18.9 Chronic kidney disease, unspecified; Z90.710 Acquired absence of both cervix and uterus; Z98.890 Other specified postprocedural states
CPT/HCPCS: 00873; J0696; J1100; J2405; J2704; J2765; J3010; J7120

== ENCOUNTER 2017-11-20 07:19 | Day surgery (SDC) | payer MEDICARE, OTHER ==
[~2017-11-20] VITALS: Ht 160 cm; Wt 94.3 kg
--- NOTE | 2017-11-20 08:23 | NUR ---
PT IN FOR STONE EXTRACTION. GREAT ATTITUDE, VERY PLEASANT. SUPPORTED BY HER SISTER. THEY BOTH HAD FEW QUESTIONS
--- NOTE | 2017-11-20 10:56 | NUR ---
11/20/17 1056 Val Garcia 1039 PT REACTIVE WITH ORAL AIRWAY IN PLACE, RESP EVEN AND UNLABORED. 1045 AIRWAY REMOVED, PT WOKE UP TO STIMULI AND OPENED MONTH. REORIENTED TO DS.
--- NOTE | 2017-11-20 11:17 | NUR ---
PT IS BACK TO DS FROM PACU. CALL LIGHT WITHIN REACH. FAMILY NOTIFIED SHE IS BACK IN ROOM. WATER ON BEDSIDE TABLE. NO OTHER C/O'S AT THIS TIME. WILL REASSESS WITHIN THE HOUR.
--- NOTE | 2017-11-20 12:38 | NUR ---
ASSISTED PT BACK TO RM FROM BR. PT AMBULATES, BUT STATES SHE FEELS "A LITTLE UNSTEADY." CHELSEY ROHIT ON WARM PLACED UNDER PT'S BLANKET. REFILLED WATER, PROVIDED CRACKERS AND PUDDING. PT RATES PAIN LEVEL A 5 AND ACCEPTS PO PAIN MEDS. PT SISTER AT BEDSIDE. CALL LIGHT WITHIN REACH. NO FURTHER C/O'S AT THIS TIME.
[2017-11-20] MEDS ORDERED: AUGMENTIN 875-1 EACH PO (13:07)
[2017-11-20] MEDS ORDERED: PERCOCET 5-3251 EACH PO (13:08)
--- NOTE | 2017-11-20 13:24 | NUR ---
LE 1240: PT TOLERATES PO, WITH NO C/O NAUSEA. DC INSTRUCTIONS GIVEN IN PRESENCE OF PT AND SISTER. BOTH VERBALIZE UNDERSTANDING AND ALL QUESTIONS ANSWERED. PT DC'S VIA WHEELCHAIR FROM DS RM 4 WITH SISTER HER RIDE.
--- NOTE | 2017-11-25 15:09 | OR ---
[facility] [address] [place] [address] Signed DATE OF OPERATION: 11/20/2017 SURGEON: Sangita Webb MD PREOPERATIVE DIAGNOSES: 1. Large right renal calculus. 2. History of urosepsis due to intermittent obstruction of large right renal calculus. POSTOPERATIVE DIAGNOSES: 1. Large right renal calculus. 2. History of urosepsis due to intermittent obstruction of large right renal calculus. NAMES OF PROCEDURES: 1. Diagnostic cystoscopy with right ureteral stent exchange. 2. Right flexible nephroureteroscopy with laser lithotripsy and basket extraction of stone fragments. 3. Right retrograde pyelogram. ANESTHESIA: General. ESTIMATED BLOOD LOSS: Minimal. COMPLICATIONS: None. SPECIMENS: Fragments of right renal calculus, sent to the lab for stone analysis. DRAINS: A 5 x 24 cm contour double-J ureteral stent exchanged in the right ureter without difficulty. INDICATIONS FOR PROCEDURE: Brigitte is a very pleasant 67-year-old female, who is well known to me. She has a history of urosepsis secondary to a large 1.6 cm intermittently obstructing right renal calculus back in August 2017. She underwent right ureteral stent insertion at the time and once she was clear of infection, she underwent exchange of a right ureteral stent, followed by extracorporeal shock wave lithotripsy of the right renal calculus in [place] Electronically Signed By: SANGITA WEBB MD 11/25/17 1509 PATIENT NAME: BRIGITTE AYALA KIA OPERATIVE REPORT DATE OF : 52 REPORT #: [id number] PHYSICIAN: SANGITA WEBB MD PCP: FARIDA BURROUGHS MD REPORT IS CONFIDENTIAL AND NOT TO BE RELEASED WITHOUT AUTHORIZATION [facility] [address] [place], [place] [address] Signed to fragment it into smaller pieces. She presents today to undergo extraction of the stone fragments. She has been doing well overall and denies any gross hematuria or dysuria. She was most recently placed on Levaquin earlier this month postoperatively. Her urinalysis obtained a few days ago was within normal limits. OPERATIVE FINDINGS: 1. On cystoscopy, there was no evidence of any suspicious masses, lesions, or stones within the bladder. She has an indwelling right ureteral stent with the distal coil in good position. 2. The old 5 x 24 cm stent was exchanged out for a fresh 5 x 24 cm double-J ureteral stent at the end of the procedure without difficulty. 3. Right retrograde pyelogram revealed a slight narrowing at the level of the right ureteropelvic junction that I suspect could have promoted development of this large right renal calculus over time. 4. Right nephroureteroscopy revealed a significant amount of stone burden present in the upper pole and midpole of the right kidney. A 400 micron holmium laser fiber was used to break the large stone fragments when a 270 micron fiber was unsuccessful. Overall, I was able to successfully fragment down the larger fragments to what I believe will be more easily extractable stone pieces. However, during fragmentation of the stone, I began to meet with a significant amount of bleeding from the surrounding parenchyma, likely due to the power of the current laser fiber. Once I was satisfied that all the stone fragments were of adequate size, I initiated a basket retrieval of stones. Overall, I was able to extract approximately a third of the total stone burden. However, I met with a significant amount of bleeding and with resulting coagulation that made it difficult to extract the stones. 5. After multiple attempts at fragmenting the stones, the blood was acting as a "shield" against the basket and the basket was bouncing off the stone clot, as I was trying to retrieve the stones. At this time, I made a decision to re-insert a 5 x 24 cm stent into the right kidney and I will bring her back for another procedure. DESCRIPTION OF PROCEDURE: After informed consent was obtained, the patient was taken back to the operating room. She was transferred from the [facility] to the operative room table, where general anesthesia was induced. She was placed in dorsal lithotomy position and her genitalia were prepped and draped in a standard sterile fashion. Using a 30-degree lens on a 23-Hungarian introducer, rigid cystoscope was inserted through the urethra into her bladder under direct visualization. Panendoscopic views of bladder were then obtained. Please see above findings. I turned my attention to the indwelling right ureteral stent, which was removed using stent graspers to the level of the urethral opening. I passed a Sensor wire to the lumen of the indwelling stent and up into the right collecting system. The indwelling stent was then removed fully intact. Over the 0.035 Sensor wire, I passed a 13/15 ureteral access sheath into the right ureter under fluoroscopic Electronically Signed By: SANGITA WEBB MD 11/25/17 1509 PATIENT NAME: BRIGITTE AYALA OPERATIVE REPORT DATE OF : 52 REPORT #: [id number] PHYSICIAN: SANGITA WEBB MD PCP: FARIDA BURROUGHS MD REPORT IS CONFIDENTIAL AND NOT TO BE RELEASED WITHOUT AUTHORIZATION [address] [address] Signed guidance without difficulty. I inserted a flexible ureteroscope and upon insertion, I was able to appreciate the narrowing of the level of the ureteropelvic junction, at which point there was significant amount of small stone fragments lodged there as if trying to pass through. I extracted the fragments of stone from this area without difficulty. I then continued my passage of the ureteroscope into the right renal pelvis. I was able to appreciate a decent amount of stone burden in the upper pole of the right kidney as well as the mid pole of the right kidney. Some of the fragments I could appreciate would still require laser treatment for further fragmentation. I initially attempted to use a 270 micron fiber with a total energy of 1 and hertz at 0.8. This was unsuccessful and barely did any damage to the stone fragments. I then upgraded to a 400 micron fiber and then at this time, I began to see some proper fragmentation of the large stones. About 3/[address] through fragmentation, I began to notice a significant amount of bleeding from the parenchyma, which made it harder to fragment the stones. Once I successfully fragmented the stone into smaller pieces, I began basketing the small stones using a Zero Tip basket. I was able to basket a few fragments, but then my visualization became very poor and well-organized clot developed within the right renal pelvis, making it difficult for me to extract the stones. After multiple attempts at stone extraction, I decided to abort the procedure and re-inserted stent. I therefore re-inserted a 0.035 Sensor wire through the ureteral access sheath and into the right renal pelvis. The sheath was then removed. Over the wire, I inserted a 5 x 24 cm contour double-J ureteral stent into the right ureter under direct visualization. An adequate proximal coil was seen within the right renal pelvis along with an adequate distal coil within the bladder. The patient's stone specimens were placed in a specimen cup to be sent to the lab for stone analysis. The cystoscope was then removed from the patient's bladder and the procedure was terminated. The patient tolerated the procedure well without any complication. She will now be transferred to the postanesthesia care unit in stable condition. DISPOSITION: I discussed the details of today's procedure with Brigitte's sister, Yue, and answered all of her questions. Unfortunately, she will require one more surgery to extract the remaining fragments of her stone. The patient's sister today tells me that she has been taking Midol as needed for pain. However, this is not reported to us preoperatively. I would say that explains why I encountered as the amount of bleeding that I did during fragmentation of the stone, which did make additional surgical interventions more difficult. Her sister told me today that she would have Brigitte stop taking the Midol immediately. She will be sent home today with Augmentin 875 one tablet p.o. b.i.d. for a total of 10 days along with Percocet 5/325, dispensed #30 as needed for pain. She will be scheduled to return to clinic in approximately 2 weeks for a preoperative visit and to have her urine checked prior to surgery. Her date of repeat ureteroscopy with stone extraction is scheduled for December 11 at 9 a.m. Electronically Signed By: SANGITA WEBB MD 11/25/17 1509 PATIENT NAME: BRIGITTE AYALA [facility] OPERATIVE REPORT DATE OF : 52 REPORT #: [id number] PHYSICIAN: SANGITA WEBB MD PCP: FARIDA BURROUGHS MD REPORT IS CONFIDENTIAL AND NOT TO BE RELEASED WITHOUT AUTHORIZATION [address] [address] Signed Sangita Webb MD AR/MODL /[id number] Electronically Signed By: SANGITA WEBB MD 11/25/17 1509 PATIENT NAME: MADHURIÓSCARBRIGITTE ANN OPERATIVE REPORT DATE OF : 52 REPORT #: [id number] PHYSICIAN: SANGITA WEBB MD PCP: FARIDA BURROUGHS MD REPORT IS CONFIDENTIAL AND NOT TO BE RELEASED WITHOUT AUTHORIZATION
== END 2017-11-20 13:20 | disposition home or self-care (01) ==
LOC: OPS 07:19 → DS 07:19 → OPS 08:15 → DS 09:30 → OPS 09:30
PROVIDERS: Urology
PROC: 0TC38ZZ Extirpation of Matter from Right Kidney Pelvis, Via Natural or Artificial Opening Endoscopic (ICD-10-PCS; principal; 2017-11-20 08:15)
PROC: 0T768DZ Dilation of Right Ureter with Intraluminal Device, Via Natural or Artificial Opening Endoscopic (ICD-10-PCS; 2017-11-20 08:15)
DX: N20.0 Calculus of kidney (principal); G47.30 Sleep apnea, unspecified; R06.83 Snoring; E78.00 Pure hypercholesterolemia, unspecified; K21.9 Gastro-esophageal reflux disease without esophagitis; F32.9 Major depressive disorder, single episode, unspecified; E11.22 Type 2 diabetes mellitus with diabetic chronic kidney disease; I12.9 Hypertensive chronic kidney disease with stage 1 through stage 4 chronic kidney disease, or unspecified chronic kidney disease; N18.9 Chronic kidney disease, unspecified; M19.90 Unspecified osteoarthritis, unspecified site; N17.9 Acute kidney failure, unspecified; E07.9 Disorder of thyroid, unspecified; E66.9 Obesity, unspecified; Z79.899 Other long term (current) drug therapy; Z99.81 Dependence on supplemental oxygen; Z88.8 Allergy status to other drugs, medicaments and biological substances; Z68.36 Body mass index [BMI] 36.0-36.9, adult; Z98.890 Other specified postprocedural states; Z90.710 Acquired absence of both cervix and uterus; Z98.84 Bariatric surgery status
CPT/HCPCS: 00910; 74018; 74420; 81001; 82365; 87088; C2617; J0330; J0696; J2250; J2405; J2704; J2765; J3010; J7120; Q9967

== ENCOUNTER 2017-12-11 05:45 | Day surgery (SDC) | payer MEDICARE, OTHER ==
[~2017-12-11] VITALS: Ht 160 cm; Wt 97.1 kg
[~2017-12-11 05:45] MED LIST changes: +AUGMENTIN 875-1 EACH PO
--- NOTE | 2017-12-11 10:00 | NUR ---
12/11/17 1000 Dottie Quiroz 0996 PT ARRIVED IN PACU VERY SLEEPY. ANESTHESIA AT BEDSIDE. BLOOD SUGAR 124.
--- NOTE | 2017-12-11 10:24 | NUR ---
PT IS BACK TO DS FROM PACU. SHE IS REPORTING MINIMAL PAIN. WATER ON BEDSIDE TABLE. CALL LIGHT IS WITHIN REACH. NO OTHER C/O'S AT THIS TIME. WILL REASSESS WTIHIN THE HOUR. FAMILY IS AT THE BEDSIDE.
[2017-12-11] MEDS ORDERED: AUGMENTIN 875-1 EACH PO (10:31)
[2017-12-11] MEDS ORDERED: PERCOCET 5-3251 EACH PO (10:31)
--- NOTE | 2017-12-11 10:58 | NUR ---
PT HITS HER CALL LIGHT AND REQUESTS TO USE THE RESTROOM. SHE IS UP OOB WITH STANDBY ASSIST. SHE REPORTS FEELING A LITTLE WOOZY, BUT SAFE TO WALK. PT IS UNABLE TO HOLD HER URINE AND SHE LEAKS ON THE FLOOR IN THE BATHROOM DOORWAY ALL THE AY TO THE [facility], UNABLE TO MEASURE VOID. FLOOR IS CLEANED UP AND THE PT'S SCD'S AND SOCKS ARE REMOVED. SHE IS GIVEN DRY/CLEAN SOCKS.
--- NOTE | 2017-12-11 11:18 | NUR ---
PT REPORTS MINIMAL PAIN. PT IS STILL AT THE BEDSIDE. PT STATES SHE FEELS LIKE SHE IS READY TO GO HOME. NO OTHER C/O'S AT THIS TIME. GETTING READY TO DC PT TO HOME.
--- NOTE | 2017-12-11 12:06 | OR ---
[facility] [address] [place], [place] [address] Signed DATE OF OPERATION: 12/11/2017 SURGEON: Sangita Webb MD PREOPERATIVE DIAGNOSES: 1. Large right renal calculus, status post right ESWL and right ureteroscopy with laser lithotripsy. 2. Indwelling right ureteral stent. 3. Mild right ureteropelvic junction obstruction. POSTOPERATIVE DIAGNOSES: 1. Large right renal calculus, status post right ESWL and right ureteroscopy with laser lithotripsy. 2. Indwelling right ureteral stent. 3. Mild right ureteropelvic junction obstruction. NAMES OF PROCEDURES: 1. Diagnostic cystoscopy with right retrograde pyelogram. 2. Right ureteral stent exchange. 3. Right flexible nephroureteroscopy with laser lithotripsy and basket extraction of stones. ANESTHESIA: General. ESTIMATED BLOOD LOSS: Minimal. COMPLICATIONS: None. SPECIMENS: None. DRAINS: A 6 x 24 cm contour double-J ureteral stent inserted at the right ureter. INDICATIONS FOR PROCEDURE: Ms. Ayala is a very pleasant 67-year-old female who is well known to me. In late August 2017, she was admitted for urosepsis and was found to have a large 1.2 cm Electronically Signed By: SANGITA WEBB MD 12/11/17 1206 PATIENT NAME: JANICE AYALA OPERATIVE REPORT DATE OF : 52 REPORT #: [id number] PHYSICIAN: SANGITA WEBB MD PCP: FARIDA BURROUGHS MD REPORT IS CONFIDENTIAL AND NOT TO BE RELEASED WITHOUT AUTHORIZATION [facility] [address], [place] [address] Signed intermittently obstructing right renal calculus. After undergoing right ESWL along with ureteroscopy for fragmentation of the large renal calculus, she presents today to undergo the final treatment of her stone. On her last office visit, I did inform the patient of the presence of a mild right ureteropelvic junction obstruction noted on the right side, which is likely the cause of her large right renal calculus. The patient voiced no desire to undergo intervention to open up the stenosis on the right side. She would like to just continue with stone extraction and manage her mild right UPJ conservatively. OPERATIVE FINDINGS: 1. On cystoscopy, there was no evidence of any suspicious masses, lesions, or stones within the bladder. Her indwelling ureteral stent is mildly calcified. 2. Right retrograde pyelogram confirmed adequate placement of the ureteral access sheath after placement of the sheath over a Sensor wire. 3. Right flexible nephroscopy again revealed a very large stone burden, most of which was fragmented per previous procedures. She did however require additional fragmentation of a couple of large residual stones. This was performed using a holmium laser at 0.8 hertz and one joule. The stone fragmented easily without complication. 4. Approximately 85% of the stone burden was successfully extracted today. The stone was not sent for specimen as the previous stones had already been sent and had revealed calcium oxalate monohydrate stones. 5. The exchange of the 6 x 24 cm double-J ureteral stent was performed today without difficulty. DESCRIPTION OF PROCEDURE: After informed consent was obtained, the patient was taken back to the operating room. She was transferred from the [facility] to the operating room table, where general anesthesia was induced. She was placed in the dorsal lithotomy position and genitalia were prepped and draped in a standard sterile fashion. Using a 30-degree lens on a 22-Tuvaluan introducer, rigid cystoscope was inserted through the urethra and into her bladder under direct visualization. Panendoscopic views of bladder were then obtained. Please see above findings. Attention was turned to the indwelling right ureteral stent. This was removed out to the level of the urethral meatus. A Sensor wire was placed into the lumen of the partially indwelling stent and up into the right renal pelvis. The indwelling stent was removed fully intact. Over the Sensor wire, a 13/15 ureteral access sheath was placed under fluoroscopic guidance. Of note, I was unable to pass the sheath all the way up into the right renal pelvis due to the presence of stenosis, located at the right ureteropelvic junction. I passed the flexible ureteroscope up into the right renal pelvis and began to extract small stone fragments. In the upper pole of the right kidney, I did encounter two larger fragments that did require laser fragmentation. Please see above findings. Once I fragmented these stones to an adequate size, I continued to extract the stones from the upper pole and from the right Electronically Signed By: SANGITA WEBB MD 12/11/17 1206 PATIENT NAME: JANICE AYALA OPERATIVE REPORT DATE OF : 52 REPORT #: [id number] PHYSICIAN: SANGITA WEBB MD PCP: FARIDA BURROUGHS MD REPORT IS CONFIDENTIAL AND NOT TO BE RELEASED WITHOUT AUTHORIZATION [address] [address] Signed renal pelvis. There were also a couple of stones in the lower right pole of the kidney as well that were extracted. A total of 85% of the stone burden was successfully extracted. Once I was satisfied with the amount of stones extracted, I placed a Sensor wire through the scope and into the upper pole of the right kidney and then removed the flexible ureteroscope, leaving the Sensor wire in place. Over the Sensor wire, a 6 x 24 cm contour double-J ureteral stent was inserted into the right collecting system under direct visualization. Once the wire was pulled, an adequate proximal coil was seen within the kidney along with an adequate distal coil within the bladder. The patient's bladder was then drained and the procedure was terminated. The patient tolerated the procedure well without any complication. She will now be transferred to the postanesthesia care unit in stable condition. DISPOSITION: The patient will be discharged to home later today in stable condition. I did discuss the details of today's procedure with the patient's sister and answered all of her questions. She will be scheduled to return to clinic this Monday to undergo cystoscopy with right ureteral stent extraction. She will be sent home today with Augmentin 875 p.o. b.i.d. for a total of 7 days, along with Percocet 5/325, dispense #30 as needed for pain. MD SYDNEY Rivera/SHERRON /[id number] Copies: ~ Electronically Signed By: SANGITA WEBB MD 12/11/17 1206 PATIENT NAME: JANICE AYALA OPERATIVE REPORT DATE OF : 52 REPORT #: [id number] PHYSICIAN: SANGITA WEBB MD PCP: FARIDA BURROUGHS MD REPORT IS CONFIDENTIAL AND NOT TO BE RELEASED WITHOUT AUTHORIZATION
== END 2017-12-11 11:30 | disposition home or self-care (01) ==
LOC: DS 05:45 → OPS 05:45 → DS 06:45 → OPS 11:30
PROVIDERS: Urology
PROC: 0TC08ZZ Extirpation of Matter from Right Kidney, Via Natural or Artificial Opening Endoscopic (ICD-10-PCS; principal; 2017-12-11 06:45)
PROC: 0T768DZ Dilation of Right Ureter with Intraluminal Device, Via Natural or Artificial Opening Endoscopic (ICD-10-PCS; 2017-12-11 06:45)
PROC: 0TP98DZ Removal of Intraluminal Device from Ureter, Via Natural or Artificial Opening Endoscopic (ICD-10-PCS; 2017-12-11 06:45)
PROC: BT1DYZZ Fluoroscopy of Right Kidney, Ureter and Bladder using Other Contrast (ICD-10-PCS; 2017-12-11 06:45)
DX: N20.0 Calculus of kidney (principal); N13.5 Crossing vessel and stricture of ureter without hydronephrosis; M19.90 Unspecified osteoarthritis, unspecified site; E11.9 Type 2 diabetes mellitus without complications; E78.00 Pure hypercholesterolemia, unspecified; F32.9 Major depressive disorder, single episode, unspecified; Z98.890 Other specified postprocedural states; Z79.899 Other long term (current) drug therapy; Z90.710 Acquired absence of both cervix and uterus; Z87.442 Personal history of urinary calculi; I10 Essential (primary) hypertension; G47.30 Sleep apnea, unspecified
CPT/HCPCS: 00910; 74420; C2617; J0330; J0696; J2250; J2370; J2405; J2704; J2765; J3010; J7120; Q9967

== ENCOUNTER 2017-12-29 19:27 | Emergency (ER) | payer MEDICARE, OTHER ==
[~2017-12-29] VITALS: Ht 160 cm; Wt 95.7 kg
[2017-12-29] MEDS ORDERED: ASPERCREME1 EACH TOP (23:57)
== END 2017-12-30 01:07 | disposition home or self-care (01) ==
LOC: ED 19:27
DX: S96.912A Strain of unspecified muscle and tendon at ankle and foot level, left foot, initial encounter (principal); S00.33XA Contusion of nose, initial encounter; S20.211A Contusion of right front wall of thorax, initial encounter; I10 Essential (primary) hypertension; E11.9 Type 2 diabetes mellitus without complications; F32.9 Major depressive disorder, single episode, unspecified; E78.00 Pure hypercholesterolemia, unspecified; N19 Unspecified kidney failure; Z88.1 Allergy status to other antibiotic agents; Z88.6 Allergy status to analgesic agent; Z79.899 Other long term (current) drug therapy; W01.0XXA Fall on same level from slipping, tripping and stumbling without subsequent striking against object, initial encounter; Y92.008 Other place in unspecified non-institutional (private) residence as the place of occurrence of the external cause
CPT/HCPCS: 71046; 73610; 73630; 99283

== ENCOUNTER 2018-06-14 12:23 | Emergency (ER) | payer MEDICARE, OTHER ==
[~2018-06-14] VITALS: Ht 160 cm; Wt 91.2 kg
[~2018-06-14 12:23] MED LIST changes: +ASPERCREME1 EACH TOP
[2018-06-15] MEDS ORDERED: METHYLPREDNISOLO4 M1 PO (11:34)
== END 2018-06-14 12:44 | disposition home or self-care (01) ==
LOC: ED 12:23
DX: M79.604 Pain in right leg (principal)

== ENCOUNTER 2018-06-15 09:30 | Emergency (ER) | payer MEDICARE, OTHER ==
[~2018-06-15] VITALS: Ht 160 cm; Wt 91.2 kg
--- OUTSIDE RECORDS SUMMARY | 2018-06-15 09:34 | XMS ---
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 Callie VISIT COUNT (12 MO.) 5 [facility] TOTAL 5 NOTE: Visits indicate total known visits. 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 - Type 2 diabetes mellitus without complications - Essential (primary) hypertension - Allergy status to other antibiotic agents status - Pure hypercholesterolemia, unspecified - Allergy status to analgesic agent status - Fall on same level from slipping, tripping and stumbling without subsequent striking against object, initial encounter - Unspecified kidney failure - Other place in unspecified non-institutional (private) residence as the place of occurrence of the external cause - PURE HYPERCHOLESTEROLEMIA, UNSPECIFIED - Strain of unspecified muscle and tendon at ankle and foot level, left foot, initial encounter 09/10/2017 01:25 [facility] [place] TYPE: Emergency COMPLAINT: - VOMITING 08/29/2017 17:[address] [facility] [place] TYPE: Emergency COMPLAINT: - FALL INPATIENT VISIT TRACKING (12 MO.) No inpatient visits to display in this time frame [email or web address]
[2018-06-15] MEDS ORDERED: METHYLPREDNISOLO4 M1 PO (11:34)
== END 2018-06-15 11:42 | disposition home or self-care (01) ==
LOC: ED 09:30
DX: M54.41 Lumbago with sciatica, right side (principal); E11.9 Type 2 diabetes mellitus without complications; I10 Essential (primary) hypertension; Z88.1 Allergy status to other antibiotic agents; Z88.6 Allergy status to analgesic agent; Z79.899 Other long term (current) drug therapy
CPT/HCPCS: 99283

== ENCOUNTER 2020-11-06 17:24 | Emergency (ER) | payer MEDICARE, OTHER ==
[~2020-11-06] VITALS: Ht 160 cm; Wt 95.3 kg
[~2020-11-06 17:24] MED LIST changes: +BIOTIN5 MG PO; +DAILY MULTIPLE1 EACH PO; +GLUCOSAMINE CH1 EAC7 PO; +METHYLPREDNISOLO4 M1 PO; +OMEGA DHA92 MG PO; +TURMERIC500 M2 PO; +VITAMIN B-121000 MC3 PO; +VITAMIN D-32000 UNIT PO
--- OUTSIDE RECORDS SUMMARY | 2020-11-06 17:26 | XMS ---
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 EPavan VISIT COUNT (12 MO.) 1 [facility] TOTAL 1 NOTE: Visits indicate total known visits. ED/UCC VISIT TRACKING (12 MO.) 11/06/2020 17:24 [facility] TYPE: Emergency COMPLAINT: - GLF INPATIENT VISIT TRACKING (12 MO.) No inpatient visits to display in this time frame [email or web address]
[2020-11-06] MEDS ORDERED: HYDROCODON-ACE1 EA10 PO (18:20)
== END 2020-11-06 18:36 | disposition home or self-care (01) ==
LOC: ED 17:24
DX: S82.041A Displaced comminuted fracture of right patella, initial encounter for closed fracture (principal); W22.8XXA Striking against or struck by other objects, initial encounter; I10 Essential (primary) hypertension; Z88.1 Allergy status to other antibiotic agents; Z88.8 Allergy status to other drugs, medicaments and biological substances; Z79.899 Other long term (current) drug therapy
CPT/HCPCS: 73562; 99283-25

== ENCOUNTER 2020-11-11 07:05 | Observation (INO) | payer MEDICARE, OTHER ==
[~2020-11-11] VITALS: Ht 160 cm; Wt 95.5 kg
[~2020-11-11 07:05] MED LIST changes: +HYDROCODON-ACE1 EA10 PO
[2020-11-11] MEDS ORDERED: ULTRAM50 MG PO (07:06)
[2020-11-11] MEDS ORDERED: LIPITOR40 MG PO (07:06)
--- NOTE | 2020-11-11 07:51 | NUR ---
RT COLLECTED COVID 19 SWAB WITH NO COMPLICATIONS. RT USED THE CEPHEID RAPID TEST THROUGH [facility] PER DR REQUEST AT THIS TIME.
[2020-11-11] MEDS ORDERED: PERCOCET 5-3251 EACH PO (07:57)
--- NOTE | 2020-11-11 09:50 | NUR ---
PT HAS URGE TO VOID. 2 RN ASSIST UP TO BEDSIDE COMMODE. PT HAS GAS, BUT UNABLE TO VOID AT THIS TIME. PT BACK TO BED WITH 2 RN ASSIST, SIDE RAILS IN PLACE. PT SISTER AT BEDSIDE. ANTHONY WILSON AND EDVIN ARMANDO IN DS RM 4 TO PERFORM NERVE BLOCK.
--- NOTE | 2020-11-11 11:27 | NUR ---
11/11/20 Jose7 Ekaterina Rodriguez 1121-PATIENT ARRIVED TO PACU ON RA AWAKE ANSWERS QUESTIONS APPROPRIATELY. DENIES PAIN OR NAUSEA. RR EVEN. ENCOURAGED TO TAKE DEEP BREATHES. DRESSING CDI TO RIGHT LEG. PATIENT UNABLE TO MOVE LEGS. GOOD PALPABLE PULSE ON RIGHT FOOT CAP REFILL LESS THAN 2. WILL APPLY CRYO CUFF AND ELEVATED ON PILLOW. SR.
--- NOTE | 2020-11-11 11:56 | NUR ---
PT ARRIVED FROM PACU. REPORT RECEIVED FROM WALTER HOLDER. PT REPORTS 5/10 PAIN IN RIGHT LEG/KNEE AND REQUESTS MEDICATION. PT ABLE TO TAKE SIPS OF WATER AND A BITE OF JELLO WITH NO NAUSEA. PAIN MEDICATION GIVEN (SEE MAR). PT TRANSFERED TO BED WITH 4 PERONSON ASSIST. PT ABLE TO MOVE LEGS AND TOES MINIMALLY. SPINAL LEVEL AT L4. STRONG PULSES NOTED IN BILATERAL LOWER EXTERMITIES. PT ARRIVED WITH RIGHT LEG ELEVATED ON 1 PILLOW. RIGHT LEG REMAINS ELEVATED ON ONE PILLOW. LUNG SOUNDS CLEAR. CPOX PLACED PER PROTOCOL. O2 SATURATIONS AT 95% ON ROOM AIR. PT REPORTS 2 L O2 USE BY NC AT NIGHT OR WHEN SLEEPING. PT REQUESTS 2L O2 BY NC AT THIS TIME "SO I CAN SLEEP." 2L O2 PLACED BY NC. O2 SATURATIONS CLIMB TO 98%. SCD IN PLACE ON LEFT LEG. FEET COOL TO TOUCH. NUMBNESS AND TINGLING NOTED PER SPINAL SEDATION. PT DUE TO VOID. PT REPORTS BASELINE INCONTINANCE. ROSETTA PAD AND DEPENDS PLACED TO PROTECT DRESSING FROM POSSIBLE INCONTINANCE. DRESSING TO RIGHT LOWER EXTREMITY C/D/I. NO DRAINAGE NOTED. CRYO CUFF IN PLACE. PT DENIES ADDITIONAL REQUESTS OR COMPLAINTS. CALL LIGHT WITHIN REACH. PTS FRIEND AT BEDSIDE.
--- NOTE | 2020-11-11 12:24 | NUR ---
PATIENT TO FLOOR VIA STRETCHER. 4PA MOVED PATIENT TO BED. VITALS GIVEN TO WALTER POWERS. SCD ON LEFT LEG, CPOX ON, CRACKERS AND FRESH ICE WATER, AND WARM BLANKET PROVIDED. BRIEF AND ROSETTA PAD PLACED UNDER PATIENT. CALL LIGHT HANDED TO PATIENT AND EDUCATED ON USE.
--- NOTE | 2020-11-11 13:00 | NUR ---
VITALS AND ASSESSMENT DUE. THIS RN TO ROOM. PT REPORTS PAIN IS INCREASING AND IS NOW 7/10 IN THE "MIDDLE" OF HER KNEE AND UPPER THIGH. PT STATES SHE WILL NEED ADDITIONAL PAIN MEDICATION. DR. GAITAN CALLED AND STATES TO GIVE PT AN ADDITIONAL 5MG OF OXYCODONE NOW AND TO CALL THE ANTHONY. ANTHONY WILSON CALLED. STEVE STATES TO PROCEED WITH OXYCODONE ADMINISTRATION AT THIS TIME AND CALL HIM AGAIN IN A FEW HOURS IF PTS PAIN CONTINUES TO BE OUT OF CONTROL. VITALS SIGNS STABLE. O2 AT 98% ON ROOM AIR. DRESSING REMAINS C/D/I. CMS INTACT. SPINAL RESOLVED. 2 PERSON ASSIST UP TO VOID AT BEDSIDE COMODE. PT VOIDS 300ML CLEAR YELLOW URINE. 2 PERSON ASSIST BACK TO BED. PT DENIES ADDITIONAL REQUESTS OR COMPLAINTS. CALL LIGHT TOOVIAIN JOSE. BED RAILS UP. CRYO CUFF ADN SCD'S ON.
--- NOTE | 2020-11-11 14:00 | NUR ---
VITALS AND ASSESSMENT DUE. THIS RN TO ROOM. PT REPORTS 5/10 PAIN STATING "IT'S GETTING BETTER." PT DENIES NAUSEA. REQUESTS MORE ICE WATER ADN 7-UP. PT TOLERATING PO INTAKE WITHOUT NAUSEA SO FAR. VITAL SIGNS STABLE. O2 SATURATION AT 88% WHEN THIS RN ENTERED ROOM. PT PLACED BACK ON HER HOME 2L O2 BY NC. PT STATES "YES, I JUST WANT TO WEAR IT FOR NOW." O2 CLIMBS TO 98% WITH 2L O2 BY NC IN PLACE. DRESSING REMAINS C/D/I. CMS INTACT. PT ABLE TO MOVE FEET WITH NORMAL RANGE OF MOTION. CRYO CUFF INPLACE. RIGHT LEG ELEVATED ON PILLOW. SCD'S IN PLACE. PT DENIES ADDITIONAL REQUESTS OR COMPLAINTS. CALL LIGHT WITHIN REACH. BED RAILS UP.
[2020-11-11] MEDS ORDERED: TRAMADOL HCL50 MG PO (14:18)
[2020-11-11] MEDS ORDERED: HYDROCODON-ACE1 EAC8 PO (14:21)
--- NOTE | 2020-11-11 14:56 | NUR ---
VITALS AND ASSESSMENT DUE. PT RESTING IN BED WORKING ON PAINT BY NUMBER ON TABLET. PT APPEARS RELAXED AND COMFORTABLE. PT TELLING STORIES ABOUT HER FAMILY. PT REPORTS 7/10 PAIN IN UPPER RIGHT THIGH AND RIGHT KNEE. PT DENEIS NEED FOR ADDITIONAL PAIN MEDICATION AT THIS TIME. CRYO CUFF IN PLACE. SCD IN PLACE OVER LEFT LOWER LEG. RIGHT LEG ELEVATED ON 1 PILLOW. CMS TO BILATERAL LOWER EXTREMITIES INTACT. PT ABLE TO MOVE FEET WITH NORMAL RANGE OF MOTION. LUNG SOUNDS CLEAR. PT REMAINS ON 2L O2 BY NC. ROOM AIR TRIAL ATTEMPTED. PT MAINTAINS ABOVE 90% ON ROOM AIR. PT REQUESTS TO LEAVE OXYGEN IN PLACE "IN CASE I SLEEP." PT REMAINS ON 2L O2 BY TN AT THIS TIME. DRESSING REMAINS CLEAN DRY AND INTACT WITH NO DRAINAGE NOTED. DINNER ORDER PLACED FOR PT. NO ADDITIONAL REQUESTS OR COMPLAINTS. CALL LIGHT WITHIN REACH. BED RAILS UP.
[2020-11-11] MEDS ORDERED: METOPROLOL SUCC25 MG PO (15:16)
[2020-11-11] MEDS ORDERED: TURMERIC500 M2 PO (15:31)
--- NOTE | 2020-11-11 15:50 | NUR ---
Medications reconciled using pharmacy records and patient interview
--- NOTE | 2020-11-11 16:13 | NUR ---
THIS RN TO ROOM TO CHECK ON PT. PT REPORTS 7/10 PAIN IN RIGHT KNEE AND UPPER RIGHT THIGH. SEE MAR FOR MEDICATION GIVEN. 2 PERSON ASSIST WITH FRONT WHEEL WALKER UP TO BEDSIDE COMODE. PT VOIDS 200ML CLEAR YELLOW URINE WITH OUT ISSUE. ROSETTA CARE DONE. DEPENDS IN PLACE. PT UP TO CHAIR. RIGHT LEG ELEVATED ON 1 PILLOW PER MD ORDER. CRYO CUFF IN PLACE. PT DENIES ADDITIONAL REQUESTS OR COMPLAINTS. CALL LIGHT WITHIN REACH.
--- NOTE | 2020-11-11 16:22 | NUR ---
2PA PATIENT TO BSC. PATIENT TOLERATED AND MOVING WELL. PATIENT NOW UP IN CHAIR, CRYO CUFF ON. NEW GOWN PROVIDED, BRIEF AND ROSETTA PAD UNDER PATIENT, CALL LIGHT AND PERSONAL ITEMS WITHIN REACH
--- NOTE | 2020-11-11 17:21 | NUR ---
CLERICAL ADVISER REPORTS TO THIS RN THAT SHE ACCIDENTLY TOOK PTS BLOOD SUGAR BECAUSE PT HAS REPORTED DIABETES AND PT IS ON 60G CARB DIET. BLOOD SUGAR NOTED TO BE ELEVATED BY THIS RN. DR. BROWN CALLED AND UPDATED. ORDERS GIVEN FOR HOSPITALIST CONSULTATION. ORDERS PLACED, DR. MACHUCA NOTIFIED.
--- NOTE | 2020-11-11 17:48 | NUR ---
THIS RN TO ROOM TO CHECK ON PT AND UPDATE PT. PT REQUESTS TO GET UP TO STAND. PT UP TO STAND WITH 1 PERSON ASSIST AND FRONT WHEEL WALKER. PT REPORTS 5/10 PAIN AND STATES THAT PAIN IS TOLERABLE AT THIS TIME. PT TOLERATES STANDING WELL. PT BACK TO CHAIR FOR DINNER. PT UPDATED ON BLOOD SUGAR VALUE AND ORDERED HOSPITALIST CONSULTATION. PT VERBALIZES UNDERSTANDING. HOT DECAFINATED TEA PROVIDED PER PT REQUEST. DR. MACHUCA TO BEDSIDE FOR CONSULTATION. PT DENIES ADDITIONAL REQUESTS OR COMPLAINTS. CALL LIGHT WITHIN REACH.
--- NOTE | 2020-11-11 18:09 | NUR ---
PT POST OP DAY 0 AFTERR PATELLA REPAIR. PT UP TO BEDSIDE COMODE WITH 1-2 PERSON ASSIST AND FRONT WHEEL WALKER. PT TOLERATING 60 GRAHM CARB DIET WITH GOOD APPTITIE AND NO NAUSEA. PRN PAIN MEDICATIONS GIVEN FOR 5-7/10 PAIN. PTS DRESSING TO RIGHT LEG CLEAN, DRY AND INTACT. LEG ELEVATED ON 1 PILLOW WHILE PT IS RESTING. SPINAL RESOLVED, CMS INTACT. ROOM AIR TRIALS ATTEMPTED, O2 SATURATION OFTEN DROPS BELOW 90% ON ROOM AIR. PT USES 2 L O2 BY NC AT NIGHT. PT REMAINS ON 2L O2 AT THIS TIME. CRYO CUFF AND SCD IN PLACE. HOSPITALIST CONSULTED ADDED THIS SHIFT AFTER ELEVATED BLOOD SUGAR. PT IS VOIDING QUANTITY SUFFICIENT. SISTER AT BEDSIDE FOR MUCH OF SHIFT. PT USES CALL LIGHT APPROPRIATLY.
--- NOTE | 2020-11-11 18:11 | NUR ---
PT CALL LIGHT ON. PT TALKING ON PHONE BUT HANDS THIS RN A COPY OF A LIST OF MEDICATIONS AND STATES "THIS IS THE MEDICINES I TAKE, PLEASE PUT IT IN MY RECORD." MEDICATION RECONCILLIATION UPDATED. COPY PLACED IN PTS CHART.
[2020-11-11] MEDS ORDERED: ZYRTEC10 MG PO (18:15)
--- NOTE | 2020-11-11 18:34 | NUR ---
PATIENT AWAKE IN CHAIR, SISTER IN ROOM. SBA TO BSC USING FWW, PATIENT PIVOTS WELL. BACK TO CHAIR, LEG ELEVATED/CRYO CUFF REPLENISHED AND ON KNEE. CALL LIGHT IN REACH, NO OTHER NEEDS AT THIS TIME
--- NOTE | 2020-11-11 18:38 | NUR ---
THIS RN TO ROOM TO CHECK ON PT. MILL OPERATOR HEAD AT BEDSIDE WORKING WITH PT. PT WAS UP TO BEDSIDE COMODE TO VOID WITH MILL OPERATOR HEAD. PT NOW BACK TO CHAIR. RIGHT LEG ELEVATED ON 1 PILLOW, CRYO CUFF ICE REFILLED AND IN PLACE. PT IS TOLERATING ROOM AIR WITH O2 SATURATIONS ABOVE 92% SINCE DR. MACHUCA TURNED OFF OXYGEN, WILL CONTINUES TO MONITOR. CONTINIOUS PULSE OX IN PLACE. PT DENIES ADDITIONAL REQUESTS OR COMPLAINTS. CALL LIGHT WITHIN REACH. PT SISTER AT BEDSIDE.
--- NOTE | 2020-11-11 19:08 | NUR ---
CHARGE NURSE REPORT RECEIVED. PT PRIMARY RN IN ROOM.
--- NOTE | 2020-11-11 19:10 | NUR ---
GETTING REPORT FROM PRIYA DAY SHIFT RN, PATIENT LAYING IN BED WATCHING TV AND VISITING WITH HER SISTER. PATIENT HAS NO CURRENT NEEDS. CALL LIGHT IS IN REACH.
--- NOTE | 2020-11-11 20:02 | NUR ---
PATIENT SITTING ON THE BEDSIDE AND TALIKING ON THE PHONE EATING PUDDING. PATIENT CAN BE VISUALIZED FROM THE NURSES STATION AND CALL LIGHT IS IN REACH.
--- NOTE | 2020-11-11 21:00 | NUR ---
PATIENT REQUESTED PAIN MEDICATION FOR 04/10 RT KNEE PAIN. 5MG PO OXYCODONE GIVEN, AND WATER HAS BEEN REFILLED. CALL LIGHT IS IN REACH.
--- NOTE | 2020-11-11 23:00 | NUR ---
PATIENT USED BEDSIDE COMMODE WITH FWW AND 1PA. PATIENT TOLERATED THIS WELL, BUT PAIN IS INCREASING 4/10. PATIENT NOT DUE FOR MEDICATION YET, PATIENT OK WITH WAITING A BIT FOR MORE PAIN MEDICATION. CALL LIGHT IS IN REACH.
--- NOTE | 2020-11-12 01:00 | NUR ---
PATIENT RESTING IN BED QUIETLY, EYES CLOSED, RESPIRATIONS REGULAR AND EVEN, CALL LIGHT IN REACH.
--- NOTE | 2020-11-12 02:36 | NUR ---
PATIENT'S VS ARE STABLE, ASSESSMENT REMAINS UNCHANGED SINCE THE BEGINING OF THE SHIFT, PAIN AT 4/10 AT THIS TIME, PATIENT USED THE BEDSIDE COMMODE WITH FWW AND 1PA AND BACK TO BED. CRYO REMAINS IN PLACE. NO OTHER NEEDS AT THIS TIME. CALL LIGHT IN REACH.
--- NOTE | 2020-11-12 03:38 | NUR ---
PATIENT CALLED HAVING 5/10 RT LEG PAIN AND WAS GIVEN 5MG PO OXYCODONE. NO OTHER NEEDS AT THIS TIME.CALL LIGHT IN REACH.
--- NOTE | 2020-11-12 05:00 | NUR ---
PATIENT RESTING QUIETLY, EYES CLOSED, RESPIRATION REGULAR AND EVEN, CALL LIGHT IN REACH.
--- NOTE | 2020-11-12 06:40 | NUR ---
PATIENT HAS HAD PAIN MOST OF THE NIGHT AND IT HAS BEEN BROUGHT DOWN WITH 5MG OXCODONE ALMOST EVERY 3 HOURS SINCE 9PM. PATIENT HAS BEEN DRINKING WELL AND VOIDING WELL. VS HAVE BEEN STABLE. PATIENT CONTINUES TO HAVE A CDI DRESSING TO THE RIGHT LEG FOR HER PATELLAR REPAIR. CRYO CUFF HAS REMAINED AND PLACE AND ICE REFILL NEEDED. PATIENT DOSE A STAND AND PIVOT TO THE BESIDE COMMODE WITH 1PA AND FWW. PATIENT ASKING FOR SOME PAIN MEDICATION AT THIS TIME, HEADED OUT TO GIVE REPORT AND GET MEDICATIONS. CALL LIGHT IN REACH.
--- NOTE | 2020-11-12 07:21 | NUR ---
REPORT RECEIVED FROM WALTER ESTRELLA. PT CALL LIGHT ON. PT REPORTS 4/10 PAIN "THAT WENT UP TO 8 WHEN I GOT UP" TO USE THE RESTROOM. PT REQUESTS PAIN MEDICATION (SEE MAR FOR MEDICATION GIVEN). DRESSING C/D/I WITH CRYO CUFF IN PLACE. STRONG PULSES NOTED. PT REPORTS SHE HAS ORDERED BREAKFAST. PT DENIES ADDITIONAL REQUESTS OR COMPLAINTS. CALL LIGHT WITHIN REACH. BED RAILS UP.
--- NOTE | 2020-11-12 07:39 | OR ---
[facility] [address], [place] [address] Signed DATE OF OPERATION: 11/11/2020 SURGEON: Pepito Andrade MD PREOPERATIVE DIAGNOSIS: Right patella fracture. POSTOPERATIVE DIAGNOSIS: Right patella fracture. PROCEDURE PERFORMED: Open reduction and internal fixation of right patella. DIRECTOR OF MANUFACTURING OPERATIONS: Morena Atkinson PA-C. Morena was present and critical for all portions of procedure. ANESTHESIA: Spinal. BLOOD LOSS: Minimal. TOURNIQUET TIME: 54 minutes. IMPLANTS: Two 3.0 cannulated screws with 1.25 wire. BRIEF HISTORY: Brigitte is a 69-year-old female with a ground level fall fracturing her patella. Risks and benefits of operative treatment were discussed with her and she elected to proceed. DESCRIPTION OF PROCEDURE: Once consent was obtained, she was taken to the operating room. After adequate anesthesia, she was placed on the operating table. All downside pressure points were well padded. A well-padded proximal thigh tourniquet was placed. The leg was then prepped and draped in a standard sterile fashion, exsanguinated using Esmarch bandage. Tourniquet inflated to 250 mmHg. Standard midline incision was taken anteriorly through the skin and subcutaneous tissue. The patella fracture was easily identified. The Electronically Signed By: PEPITO ANDRADE MD 11/12/20 0739 PATIENT NAME: BRIGITTE AYALA OPERATIVE REPORT DATE OF : 52 REPORT #: [id number] PHYSICIAN: PEPITO ANDRADE MD PCP: FARIDA BURROUGHS MD REPORT IS CONFIDENTIAL AND NOT TO BE RELEASED WITHOUT AUTHORIZATION [facility] [address], [place] [address] Signed fracture fragments were distracted and cleaned of all debris. Initially on the x-rays of the clinic, a fairly comminuted fracture, however, it was fairly transverse with 1 piece along the medial side that was pretty much crushed, but 90% of the articular cortex was intact. The fracture was again cleaned and then reduced with a large Penny clamp. Once this was accomplished, it was checked using image intensifier and found to be good. Because of the fairly soft bone, we elected to go with 3.0 cannulated screws. The guidewires for 2 screws were then placed in parallel one medial, one lateral. Once this was accomplished, they were over drilled and appropriate length 3.0 screws were placed with moderate purchase in the bone. The guidewires were left in the screws for use during the tension band technique. Rather than putting in more hardware fixation, we elected to use the 2 guidewires and stab incisions were made in the patellar tendon and quad tendon proximally and distally. We were then able to thread the wire under the guide pins proximally and distally and a standard [id number] configuration. The wires were then twisted to an appropriate tension. The two guide pins were then cut and bent capturing the wires distally and proximally. They were buried in the tendons and left alone. The patient's knee was then taken to 90 degrees of flexion with no gapping of the fracture lines. In order to offload the patella little bit more, we then took a FiberTape and using a standard Krackow stitch starting in the medial patellar tendon, we did a Krackow stitch up the patellar tendon across the patella and into the quad. Another wound was placed laterally and then they were tied proximally and distally. The knots were then buried in the soft tissue and the sutures were cut. We then again took it through range of motion. There was no gapping with excellent fixation. We then copiously irrigated the wound with normal saline, closed with #1 Stratafix, and the skin was closed with elijah. The wound was dressed with Allevyn dressing and a bulky Bowman with splint. She tolerated the procedure well. All sponge, needle, and instrument counts were correct. Pepito Andrade MD BA/MODL /[id number] Copies: Electronically Signed By: PEPITO ANDRADE MD 11/12/20 0739 PATIENT NAME: BRIGITTE AYALA OPERATIVE REPORT DATE OF : 52 REPORT #: [id number] PHYSICIAN: PEPITO ANDRADE MD PCP: FARIDA BURROUGHS MD REPORT IS CONFIDENTIAL AND NOT TO BE RELEASED WITHOUT AUTHORIZATION [facility] [address] [place], [place] [address] Signed ~ Electronically Signed By: PEPITO ANDRADE MD 11/12/20 0739 PATIENT NAME: BRIGITTE AYALA KIA OPERATIVE REPORT DATE OF : 52 REPORT #: [id number] PHYSICIAN: PEPITO ANDRADE MD PCP: FARIDA BURROUGHS MD REPORT IS CONFIDENTIAL AND NOT TO BE RELEASED WITHOUT AUTHORIZATION
--- NOTE | 2020-11-12 07:57 | NUR ---
PER DR. GAITAN, AFTER PHYSICAL THERAPY, CALL HIM IF PATIENT CLEARED TO DISCHARGE HOME.
--- NOTE | 2020-11-12 08:37 | NUR ---
MORNING ASSESSMENT AND MEDICATION DUE. PT SITTING UP IN BED EATING BREAKFAST. PT ENCOURAGED TO GET OUT OF BED AND UP TO CHAIR TO EAT. 1 PERSON ASSIST WITH FRONT WHEEL WALKER UP TO CHAIR. PT REPROTS 2/10 PAIN IN RIGHT KNEE AND DENIES NEED FOR ADDITIONAL PAIN MEDICATION AT THIS TIME. WEAKNESS CONTINUES PER PT IN LOWER EXTREMITIES. PT HAS DIFFICULTY MOVING RIGHT EXTREMITY WITHOUT ASSISTANCE. DRESSING TO RIGHT LOWER EXTREMITY C/D/I, NO DRAINAGE OR SHADOWING NOTED. CMS TO BILATERAL EXTERMITIES INTACT. RIGTH LEG ELEVATED ON 1 PILLOW STRONG PULSES NOTED. PT TOLERATING ROOM AIR WITH O2 SATURATIONS ABOVE 92%. CPOX IN PLACE. PT REPORTS "SORE" BOTTOM, NO SKIN BREAK DOWN NOTED. BARRIER CREAM APPLIED. DEPENDS IN PLACE. PT REMAINS UP TO CHAIR EATING BREAKFAST. MEDICATIONS GIVEN, VITAL SIGNS STABLE. LINENS CHANGED. NO ADDITIONAL REQUESTS OR COMPLAINTS. CALL LIGHT WITHIN REACH. CRYO CUFF IN PLACE.
--- NOTE | 2020-11-12 10:24 | NUR ---
THIS RN TO ROOM TO CHECK ON PT. PT REPORTS SHE WAS UP WITH PHYSICAL THERAPY AND WAS ABLE TO AMBULATE FROM CHAIR AROUND BED AND BACK TO BED. PT REPORTS PHYSICAL THEARPY WAS PAINFUL. PT REPORTS PAIN IN RIGHT KNEE WAS 8/10 WITH PHYSICAL THERAPY. PT NOW REPORTS 5/10 PAIN IN RIGHT KNEE. SEE MAR FOR MEDICATION GIVEN. PT RESTING IN BED, STATES SHE WILL GET BACK UP TO THE CHAIR FOR LUNCH. OXYGEN SATURATION 96% ON ROOM AIR. NO ADDITIONAL REQUESTS OR COMPLAINTS AT THIS TIME. CALL LIGHT WITHIN REACH. BED RAILS UP.
--- NOTE | 2020-11-12 11:00 | NUR ---
Pt states she lives alone at [facility]. Utilities are included. She has a walker she got for free. She's not and does not have any children. She has "sisters' who are part of her anglican. She does not feel she can return home without assistance. She agrees a SNF would be the best place to go. Informed of SNFs here and in surrounding 3 towns. She prefers not to go here as she was at [facility] in the past. Discussed Dr. Andrade prefers [facility] in , but she would need transport. She states she would like to go to [facility] in [place]. We discussed there is no visitation in SNFs at this time. Pt states she is aware. Brochure given for [facility]. Sister, arrives and they discuss SNF. She is concerned about no visitation, but Brigitte discusses she needs assistance for a while. Informed I will send her chart and let her know if she is accepted.
--- NOTE | 2020-11-12 11:10 | NUR ---
PTS CALL LIGHT ON. PT REQUESTS ASSISTANCE TO PLACE LUNCH ORDER. THIS RN TO ROOM. LUNCH ORDER PLACED. PT REPORTS 2/10 PAIN IN RIGHT KNEE AT THIS TIME. PT DENIES NEED FOR ADDTIONAL PAIN MEDICATION. STEPHANE FROM PHYSICAL THERAPY UPDATED THIS ON PTS ABILITY TO AMBULATE. MARKY ARREGUINDS PENITENTIARY THERAPY FOR PT AND POSSIBEL DISCHARGE TO LONG-TERM FACILITY. DR. GAITAN CALLED AND UPDATED. ORDERS TO CONTINUE THERAPY AT THE HOSTIPAL AT THIS TIME. PT DENIES ADDITIONAL REQUESTS OR COMPLAINTS. CALL LIGHT WITHIN REACH. BED RAILS UP.
--- NOTE | 2020-11-12 11:29 | NUR ---
Called and spoke with Angela from [facility]. They have beds available. FAxed chart with malika sheet, covid test, surgery report, Notes, Medlist, PT eval. We discussed pt has not had a three night stay, but Angela reminded me we are still under Covid rules and pt may admit without 3 night stay with a note from the Dr. Pt will need a covid swab prior to admission. They will transport pt. She will let us know the time of transport tomorrow.
--- NOTE | 2020-11-12 12:03 | NUR ---
NOON MEDICATION DUE. PT REPORTS 5-7/10 PAIN AND STATES SHE WANTS ADDITIONAL PAIN CONTROL. WILL NOTIFY MD. INSULIN GIVEN. 1 PERSON ASSIST WITH FRONT WHEEL WALKER UP TO CHAIR. PT CONTINUES TO REPORT WEAKNESS. PT EATING LUNCH. NO ADDITIONAL REQUESTS OR COMPLAINTS. CALL LIGHT WITHIN REACH.
--- NOTE | 2020-11-12 12:30 | NUR ---
Notified by [facility], they will accept this patient. Will follow up with tomorrow with transport plans.
--- NOTE | 2020-11-12 12:30 | NUR ---
DR. GAITAN CALLED WITH PTS REPORT OF UNCONTOLLED PAIN. NO NEW ORDRES. PT UPDATED AND VERBALIZES UNDERSTANDING OF DOCTORS PLAN OF CARE. NO ADDITIONAL REQUESTS OR COMPLAINTS. CALL LIGHT WITHIN REACH. PTS SISTER AT BEDSIDE.
--- NOTE | 2020-11-12 13:27 | NUR ---
AFTERNOON ASSESSMENT DUE. PT CALL LIGHT ON. PT STATES "I NEED MORE MEDICINE." THIS RN TO ROOM. PT REPORTS 09/10 PAIN IN RIGHT KNEE/LEG. UPON FURTHER INVESTIGATION PT STATES "NO ITS A 04/10, IT COULD BE WORSE." SEE MAR FOR MEDICATION GIVEN. ASSESSMENT DONE. PT CONTINUES TO REPORT WEEKNESS IN LEGS. THIS RN NOTES THAT PT IS NOW ABLE TO LIFT BOTH LEGS OFF THE BED WITHOUT ASSISTANCE. RIGHT LEG DRESSING REMAINS C/D/I. STRONG PULSES NOTED. PT REPORTS NORMAL SENSATION. NO SWELLING NOTED IN FOOT, REMANDER OF LEG COVERED BY BANDAGE. CRYO CUFF IN PLACE ON RIGHT LEG. SCD IN PLACE ON LEFT LEG. PT TOELRATING ROOM AIR WITH O2 SATRUATIONS ABOVE 92%. CPOX DISCONTINUED PER PROTOCOL. WILL CONTINUE TO SPOT CHECK. PT CONTINEUS TO REPORT A "SORE BOTTOM." NO SKIN BREAK DOWN NOTED. BARRIER CREAM APPLIED BY AUTO BODY MAN. PT WORKING ON TABLET. NO ADDITIONAL REQUESTS OR COMPLAINTS. CALL LIGHT WITHIN REACH. BED RAILS UP.
--- NOTE | 2020-11-12 13:29 | NUR ---
RT COLLECTED COVID 19 SWAB WITH NO COMPLICATIONS. RT USED THE CEPHEID RAPID TEST THROUGH [facility] PER DR REQUEST AT THIS TIME.
--- NOTE | 2020-11-12 14:58 | NUR ---
Went to check on pt. Pt was sitting in her chair on her tablet with call light next to her. Pt stated she voided after the physical therapist was with her. Output was emptied and recorded by the physical therapist. When asked if she needed anything, pt stated "no I think I am alright". I let her know to push the call light if she needs any help.
--- NOTE | 2020-11-12 15:20 | NUR ---
THIS RN TO ROOM TO CHECK ON PT. PT UP TO CHAIR RESTING WITH EYES CLOSED. RESPIRATIONS EVEN AND UNALBORED. CALL LIGHT WITHIN REACH. PT ALLOWED TO REST.
--- NOTE | 2020-11-12 15:31 | NUR ---
WENT IN TO SEE IF PATIENT'S CRYO NEEDED TO BE REFILLED AND SHE TOLD ME THAT PHYSICAL THERAPY DID IT. SO I THANKED TONY.
--- NOTE | 2020-11-12 16:00 | EKG ---
[facility] [address] [place] [address] Signed Normal sinus rhythm with sinus arrhythmia Cannot rule out Inferior infarct , age undetermined Cannot rule out Anterior infarct (cited on or before 16-OCT-2017) Abnormal ECG When compared with ECG of 16-OCT-2017 11:39, Sinus rhythm has replaced Ectopic atrial rhythm Confirmed by DYLAN MACHUCA DO ([id number]) on 11/12/2020 4:00:50 PM Electronically Signed By: DYLAN MACHUCA DO 11/12/20 1600 PATIENT NAME: JANICE AYALA KIA Electrocardiogram DATE OF : 52 PHYSICIAN: DYLAN MACHUCA DO REPORT #: [id number] REPORT IS CONFIDENTIAL AND NOT TO BE RELEASED WITHOUT AUTHORIZATION
--- NOTE | 2020-11-12 16:08 | NUR ---
THIS RN TO ROOM TO CHECK ON PT. PT REPORTS 8/10 PAIN IN RIGHT KNEE AND STATES SHE WANTS TO GET BACK TO BED. PAIN MEDICATION GIVEN. 1 PERSON ASSIST WITH FRONT WHEEL WALKER BACK TO BED. CRYO CUFF IN PLACE OVER RIGHT KNEE. SCD IN PLACE ON LEFT LEG. ICE WATER REFILLED. PT DENIES ADDITONAL REQUESTS OR COMPLAINTS AT THIS TIME. CALL LIGHT WITHIN REACH. BED RAILSUP.
--- NOTE | 2020-11-12 16:09 | NUR ---
ATTEMPTED DIABETES EDUCATION CONSULT. PT REPORTS SHE HAS NOT THOUGHT ABOUT FOOD CHOICES FOR DM IN THE LAST 10 YEARS AND WOULD NEED A REFRESHER. SHE PREFERS TO WAIT UNTIL TOMORROW SHE IS NOT FEELING WELL ENOUGH TO DISCUSS. HERNANDO Jaquez RD WILL ATTEMPT TO COMPLETE CONSULT TOMORROW.
--- NOTE | 2020-11-12 16:58 | NUR ---
EVENING MEDICATION DUE. PT RESTING IN BED WORKING ON PAINT BY NUMBER, STUDENT RN AT BEDSIDE ASSISTING PT. PT REPORTS 3/10 PAIN IN RIGHT KNEE THAT IS "GETTING BETTER." MEDICATION GIVEN (SEE MAR). PT EATING DINNER. NO ADDITIONAL REQUESTS OR COMPLAINTS AT THIS TIME. CALL LIGHT WITHIN REACH. BED RAILS UP.
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
--- NOTE | 2020-11-12 17:46 | NUR ---
Performed a head to toe assessment on pt. Assissted patient to chair to eat dinner. Provided pt with call light. Took pt's vitals. Using the automatic blood prssure cuff, came up with a BP of 171/66. Took BP again and got 172/66. I charted findings and notified a nurse. I was instructed to take a manual BP and with that I got a blood prssure of 158/78.
--- NOTE | 2020-11-12 18:05 | NUR ---
PT POST OP DAY 1 AFTER RIGHT PATELLA REPAIR. PT UP WITH 1 PERSON ASSIST TO RESTROOM, WITH PHYSICAL THERAPY, AND TO CHAIR. PT BECOMING STRONGER AND IS ABLE TO LIFT HER LEGS INDEPENDANTLY AT TIMES. PT TOELRATING 60G CARB DIET WITH GOOD APPITITE AND NO NAUSEA. BLOOD SUGAR CHECKS WITH MEALS WITH SLIDING SCALE INSULIN. PT TOELRATING ROOM AIR THIS SHIFT, CPOX DISCONTINUED. DRESSING TO RIGHT EXTREMITY REMAINS C/D/I. CMS INTACT WITH STRONG PULSES NOTED, NORMAL SENSATION AND ADIQUITE RANGE OF MOTION. CRYO CUFF IN USE. RIGHT LEG ELEVATED ON 1 PILLOW. PT ANTICIPATING DISCHAGE TOMORROW TO ASSISTED FACILITY. PRN PAIN MEDICAITON GIVEN FOR 2-8/10 PAIN THIS SHIFT. PT UP TO CHAIR FOR MUCH OF SHIFT. IV SALINE LOCKED, PO INTAKE SUFFIEINT. PT VOIDING QUANTITY SUFFICIENT. PT USES CALL LIGHT APPROPRIATLY.
--- NOTE | 2020-11-12 18:10 | NUR ---
THIS RN TO ROOM TO CHECK ON PT. PT UP TO CHAIR, WORKING ON TABLET. PT REPORTS 1/10 PAIN IN RIGHT KNEE AT THIS TIME. PT DENIES NEED FOR ADDITITONAL PAIN MEDICAITON. PT FINISHED WITH DINNER, 50% CONSUMED. PT DENIES NAUSEA. RIGHT LEG REMAINS ELEVATED ON 1 PILLOW WITH CRYO CUFF IN PLACE. DRESSING C/D/I. PT DENIES ADDITONAL REQUESTS OR COMPLAINTS. CALL LIGHT WITHIN REACH.
--- NOTE | 2020-11-12 18:41 | NUR ---
Answered pt's call light. pt wanted to go back to her bed. This nurse helped pt move from chair to bed. Call light is within reach and SCD and iceman were hooked back up to pt's legs.
--- NOTE | 2020-11-12 19:15 | NUR ---
SHIFT REPORT RECEIVED FROM PRIYA WATSON. PT RESTING IN BED, EYES CLOSED. RR EVEN, UNLABORED. CALL LIGHT IN REACH.
--- NOTE | 2020-11-12 20:15 | NUR ---
IN TO ASST PT TO THE BSC, 1PA FWW, PT BACK IN BED AT THIS TIME, VITALS DONE, CRYO REFILLED, ICE WATER REFILLED, NO FURTHER NEEDS AT THIS TIME
--- NOTE | 2020-11-12 20:34 | NUR ---
ASSESSMENT COMPLETED. GCS 15, A&O X4. LUNGS CLEAR, HEART TONES REGULAR. IV WNL, CDI, FLUSHED WELL. ABD SOFT, NONTENDER, PT STATES NORMAL, BOWEL TONES ACTIVE. RIGHT KNEE COVERED, PAIN 4/10, PRN PAIN MED PROVIDED. SCHEDULED MEDS PROVIDED. CMS INTACT X4. DRESSING DRY. CRYO CUFF ON RIGHT KNEE AND ELEVATED. SCD ON LEFT LEG. CBG 201, INSULIN PROVIDED. NO OTHER NEEDS AT THIS TIME. CALL LIGHT IN REACH.
--- NOTE | 2020-11-12 22:29 | NUR ---
in to asst pt to the bsc, 1pa fww pivot, pt back in bed, cryo cuff in place, no further needs at this time
--- NOTE | 2020-11-12 23:00 | NUR ---
PT RESTING IN BED, EYES CLOSED. PT ON 2L NC. RR EVEN, UNLABORED. CALL LIGHT IN REACH.
--- NOTE | 2020-11-13 00:11 | NUR ---
PT STATES SHE HAS 4/10 RIGHT KNEE PAIN, PRN PAIN MED PROVIDED. NO OTHER NEEDS AT THIS TIME. CALL LIGHT IN REACH.
--- NOTE | 2020-11-13 00:26 | NUR ---
IN TO ASST PT UP TO THE BSC, 1PA FWW PIVOT, NO FURTHER NEEDS AT THIS TIME
--- NOTE | 2020-11-13 01:37 | NUR ---
PT RESTING IN BED, EYES CLOSED. RR EVEN, UNLABORED. CALL LIGHT IN REACH.
--- NOTE | 2020-11-13 04:09 | NUR ---
PT STATES PAIN IS 4/10, PRN PAIN MED PROVIDED. PT UP TO BSC WITH DANNIE MARKETING PERFORMANCE ANALYST.
--- NOTE | 2020-11-13 04:15 | NUR ---
IN TO ASST PT TO THE BSC, 1PA FWW PIVOT, APPLIED BARRIER CREAM TO PT'S REAR PER REQUEST, RN AWARE, PT BACK TO BED AT THIS TIME, CRYO ICE REFILLED, ICE WATER TOPPED OFF, NO FURTHER NEEDS AT THIS TIME
--- NOTE | 2020-11-13 04:17 | NUR ---
PT ASSESSMENT COMPLETED. LUNGS CLEAR, HEART TONES REGULAR.ABD SOFT, NONTENDER, OBESE, BOWEL TONES ACTIVE. CMS INTACT. RIGHT KNEE BANDAGING CDI. PT TRANSFERING TO [facility] WITH FWW WELL. IV WNL, CDI. LEG ELEVATED, CRYO CUFF IN PLACE, SCD ON LEFT LEG. PT CURRENTLY OFF O2. NO OTHER NEEDS AT THIS TIME. CALL LIGHT IN REACH.
--- NOTE | 2020-11-13 06:19 | NUR ---
PT HAS TOLERATED TRANSFER TO [facility] WITH FWW AND 1PA WELL TONIGHT. BANDAGING CDI. CMS INTACT. PAIN WELL MANAGED BY PRN PAIN MEDS. UOS. VSS. AFEBRILE THIS SHIFT. PT USED 2L NC TO HELP WITH SLEEP APNEA AT NIGHT. PT TOLERATED HEEL PROTECTION, CRYO CUFF, LEG ELEVATION AND SCD WELL. CBG MANAGED WELL WITH MED. IV WNL, CDI, FLUSHED WELL.
--- NOTE | 2020-11-13 07:55 | NUR ---
SPOKE WITH PATIENT IN ROOM. SHE IS UP IN CHAIR WAITING FOR BREAKFAST. WE DISCUSSED THAT SHE WAS ACCEPTED AT [facility] IN [place] WHICH SHE HAD CHOSEN FOR SNF. DISCUSSED THAT YESTERDAY LATE AFTERNOON SHE ASKED CHART SENT TO [facility] BUT THAT WE DID NOT HEAR FROM THEM YET. SHE STATES SHE "ONLY DID THAT BECAUSE MY SISTER WAS UPSET FOR ME GOING OUT OF TOWN". DISCUSSED THAT DR GAITAN IS PLANNING TO DISCHARGE HER TODAY AND DUE TO HER BEING OBSERVATION STATUS I CAN'T GUARANTEE PAYMENT FROM INSURANCE PAST THE 24HOURS. ALSO BECAUSE SHE HAS NO MEDICAL NECESSITY FOR HOSPITAL I CANNOT GUARANTEE THEY WILL PAY HER BILL. SHE STATES "I REALLY WANT TO GO TO [facility]". SHE STATES TO GO AHEAD WITH THAT PLAN. DISCUSSED WITH DR GAITAN, HE IS FILLING OUT ORDERS.
--- NOTE | 2020-11-13 08:15 | NUR ---
REPORT RECEIVED FROM NIGHT RN AND CARE RESUMED. PT. GIVEN 3 UNITS OF HUMALOG FOR BG OF 192. PT. DENIES PAIN. CMS INTACT IN RIGHT LEG. RT. LEG DRESSING CDI. IV SITE WNL AND FLUSHES WELL. LUNGS CLEAR THROUGHOUT. AGNI, DIRECTOR OF CORPORATE SALES IN THE ROOM DISCUSSING REHAB. OPTIONS. PT. AGREED TO [facility]. PT. PT. LEFT RESTING IN CHAIR WITH CALL LIGHT IN REACH.
--- NOTE | 2020-11-13 08:39 | NUR ---
About 07:30am this nurse assisted pt out of bed to use the cammode. After this nurse assisted pt to chair for breakfast. Call light was place in reach, rt leg elevated and belongings were in reach. Head to toe assessment was performed along with vitals and pain assessment. Pt requested their pain medication (oxycodone) so this nurse assessed pain and administered medication along with preceptor. Morning medications were given as well, along with 3 units of insulin around 08:30am by this nurse and preceptor.
--- NOTE | 2020-11-13 08:40 | NUR ---
ASKED TO GO BACK TO SEE PATIENT BY DRYING MACHINE RECEIVER. PATIENT WAS ON THE PHONE WITH A SISTER. SISTER WANTED TO KNOW WHY SHE WAS NOT GOING TO [facility]. DISCUSSED THAT PATIENT HAD CHOSEN [facility] AND THE FUR SORTER LILIAM HELPED HER GET ACCEPTED. EXPLAINED THAT SHE IS DISCHARGED AND [facility] IS SCHEDULED TO PICK HER UP TODAY. SHE STATES "I HAVE HEARD THEY HAVE COVID AND SOMEONE ". I EXPLAINED THAT MOST OF THE FACILITIES IN THE AREA HAVE HAD COVID AT SOME TIME, THAT THE CRITICAL ACCESS HOSPITAL HEALTH DEPARTMENT FOLLOWS THEM AND THEY DO NOT ACCEPT PATIENTS IF THEY HAVE COVID IN THE BUILDING. ALSO THAT ALL FACILITIES NOW TEST EMPLOYEES REGULARLY AND PATIENTS WELL. THE SISTER STATED THAT THEIR OTHER SISTER DIDN'T WANT HER GOING TO [facility]. I EXPLAINED THAT WHILE I APPRECIATE THE CONCERN, IT REALLY IS THE PATIENTS DECISION. SHE BECAME UPSET, STATED THAT "YOU HAVE YOUR AGENDA AND DON'T WANT TO BE BOTHERED" AND I EXPLAINED WE HAVE NO OPINION ON IT, THAT THE PATIENT DECIDES WHERE TO GO AT DISCHARGE, WE MERELY HELP WITH IT. SHE IS CONCERNED BECAUSE THEY HAVE NO FAMILY IN [place]. I EXPLAINED THERE ARE NO VISITORS AT ANY FACILITY DUE TO COVID, BUT ALL FACILITIES HAVE INTERNET AND THEY WILL HELP RESIDENTS WITH ONLINE CHATS WITH FAMILIES. SHE STATED I WAS CUTTING HER OFF AND NOT LISTENING, AND I EXPLAINED I WAS TRYING TO ANSWER HER CONCERNS AND I DID NOT MEAN TO CUT HER OFF IF I DID, IT IS HARD VIA PHONE BECAUSE I CAN'T SEE HER. SHE THEN SAID SHE WAS HANGING UP ON ME, AND PATIENT STARTED TO APOLOGIZE, BUT THEN SISTER WAS STILL ON HER PHONE AND STARTED TALKING AGAIN, ASKED ME IF I WOULD LET SOMEONE TAKE TRANSPORTATION TO [place] IN THE SNOW. I EXPLAINED THE [place]WAYS ARE USUALLY WELL MAINTAINED IN WINTER. SHE HUNG UP. I ASKED PATIENT DIRECTLY AGAIN WHAT SHE WANTS, IT TRULY IS HER DECISION. SHE STATES "I WAS OK WITH [facility], BUT I DON'T WANT TO UPSET MY FAMILY. I AM SORRY IF IT MAKES MORE WORK FOR EVERYONE". I EXPLAINED THAT IS NOT A PROBLEM, JUST THAT SHE HAS A ROOM AT [facility] AND WE DON'T WANT TO LOOSE THAT IF [facility] CAN'T TAKE HER TODAY. SHE STATED, "IF [facility] CAN'T TAKE ME TODAY, I WILL GO TO [place]". CALLED [facility] AND LEFT MESSAGE FOR HYDROBLASTER. ALSO TEXTED HER PHONE.
[2020-11-13] MEDS ORDERED: OXYCODONE HCL5 MG PO (08:57)
--- NOTE | 2020-11-13 09:50 | NUR ---
RECEIVED A CALL FROM SHIV AT [facility]. SHE STATES IF WE CAN HAVE MD SIGN WAIVER FOR INPATIENT STAY DUE TO COVID THEY WILL TAKE PATIENT. DISCUSSED WITH HER THAT DR GAITAN IS NOT HERE ANYMORE AND NOT AVAILABLE BUT I WILL TRY TO REACH HIM.
--- NOTE | 2020-11-13 10:29 | NUR ---
RD visited Brigitte to address her A1C levels since they've been gradually increasing; a year ago she had an A1C of 6.2, and current A1C is 6.9. Pt did not seem very motivated to make any dietary changes because she stated "it takes too much effort." Thus, she doesn't make the time to make breakfast and usually waits until later in the day to have a brunch. She indicated that her right knee pain was a big factor to why she didn't want to make any efforts in preparing nutritious foods throughout the day. She tends to eat TV dinners on a daily basis and snack on junk food throughout the day (i.e. high fat popcorn, candies, etc.) She did say that she did not want to go back to taking medication for her T2DM so she was a little bit more perceptive about dietary changes when we discussed how she could prevent her A1C levels from increasing. RD provided education on ways she could incorporate healthier meal choices throughout the week, low CHO food options, balanced meals, and nonstarchy vegetable options. Pt showed interest in having a nonstarchy vegetable list for reference. Once pt returns home after her recovery from knee surgery, she would benefit from a follow-up with [facility].
--- NOTE | 2020-11-13 10:30 | NUR ---
SPOKE WITH KATI AT [facility] AND LET THEM KNOW PATIENT HAS DECIDED TO STAY IN TOWN AT [facility] AND THEY HAVE ACCEPTED.
--- NOTE | 2020-11-13 10:45 | NUR ---
FAXED ORDERS [facility] RX TO [facility]. THEY FAXED BACK A COVID WAIVER FORM.
--- NOTE | 2020-11-13 11:10 | NUR ---
[facility] HAD QUESTIONS REGARDING MEDICATION ORDERS. WAS UNABLE TO GET DR GAITAN ON THE PHONE. CALLED HIS OFFICE, HE AND PA ARE NOT IN TODAY. SPOKE WITH DR MACHUCA WHO CONSULTED ON MEDICAL CARE FOR PATIENT. HE WAS ABLE TO ANSWER MEDICATION QUESTIONS AND SIGN WAIVER. THESE WERE FAXED BACK TO [facility].
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
--- NOTE | 2020-11-13 12:54 | NUR ---
CHART PACK READY FOR SNF, CLINICALS UPDATED AND INSIDE, ORDERS, RX, PASSR AND COVID WAIVER INSIDE AFTER COPIES MADE AND PLACED IN CHART. LEFT AT NURSES STATION FOR DISCHARGE. STAFF AWARE.
--- NOTE | 2020-11-14 18:07 | DS ---
[facility] [address] [place], [place] [address] Signed ADMISSION DATE: 11/11/2020 DISCHARGE DATE: 11/13/2020 ADMISSION DIAGNOSIS: Displaced right patella fracture. DISCHARGE DIAGNOSIS: Displaced right patella fracture. PROCEDURE PERFORMED DURING THIS HOSPITALIZATION: Open reduction and internal fixation of right patella. BRIEF HISTORY: Brigitte is a 69-year-old lady who lives in assisted living facility by herself with no family around. She suffered a ground level fall fracturing her patella. Risks and benefits of operative treatment were discussed with her and she elected to proceed in terms of fixing the patella. She was brought in as an outpatient, taken to the operating room, underwent the above-named procedure. She tolerated this well and was taken to the recovery room and subsequently to orthopedic floor. She was kept on pain medication of oxycodone and did well. She was seen by Physical therapy, very slow to go ambulate mobilized. She had trouble with balance as well. She has full motion of her foot. She does live alone, and the combination of her poor balance and weakness as well as no support. We will see whether she would be a candidate for shelter facility. If she has been accepted, then will be discharged today. She will follow up with me in 7-10 days. Pepito Andrade MD BA/ANOOPL /[id number] Copies: Electronically Signed By: PEPITO ANDRADE MD 11/14/20 1807 PATIENT NAME: BRIGITTE AYALA DISCHARGE SUMMARY DATE OF : 52 REPORT #: [id number] PHYSICIAN: PEPITO ANDRADE MD PCP: FARIDA BURROUGHS MD REPORT IS CONFIDENTIAL AND NOT TO BE RELEASED WITHOUT AUTHORIZATION [address] [address] Signed ~ Electronically Signed By: PEPITO ANDRADE MD 11/14/20 1807 PATIENT NAME: BRIGITTE AYALA DISCHARGE SUMMARY DATE OF : 52 REPORT #: [id number] PHYSICIAN: PEPITO ANDRADE MD PCP: FARIDA BURROUGHS MD REPORT IS CONFIDENTIAL AND NOT TO BE RELEASED WITHOUT AUTHORIZATION
== END 2020-11-13 15:45 ==
LOC: DS 07:05 → MS 11:13 → DS 11:13 → MS 11:13
PROVIDERS: ADMIT Specialist; ATTEND Specialist
PROC: 0QSD04Z Reposition Right Patella with Internal Fixation Device, Open Approach (ICD-10-PCS; principal; 2020-11-11 11:00)
DX: S82.001A Unspecified fracture of right patella, initial encounter for closed fracture (principal); W01.0XXA Fall on same level from slipping, tripping and stumbling without subsequent striking against object, initial encounter; G89.18 Other acute postprocedural pain; E03.9 Hypothyroidism, unspecified; E78.5 Hyperlipidemia, unspecified; I12.9 Hypertensive chronic kidney disease with stage 1 through stage 4 chronic kidney disease, or unspecified chronic kidney disease; E11.65 Type 2 diabetes mellitus with hyperglycemia; E11.22 Type 2 diabetes mellitus with diabetic chronic kidney disease; N18.30 Chronic kidney disease, stage 3 unspecified; F39 Unspecified mood [affective] disorder; G47.33 Obstructive sleep apnea (adult) (pediatric); Z98.84 Bariatric surgery status; Z88.8 Allergy status to other drugs, medicaments and biological substances; Z20.822 Contact with and (suspected) exposure to COVID-19
CPT/HCPCS: 01392; 64447; 73560; 76942; 80053; 83036; 85025; 93005; 93010; 97110; 97116; 97162; C1713; C1769; C9803; J0690; J1100; J1815; J2001; J2250; J2370; J2704; J2795; J7121; U0003

== ENCOUNTER 2022-06-06 11:59 | Emergency (ER) | payer MEDICARE, OTHER ==
[~2022-06-06] VITALS: Ht 160 cm; Wt 89.8 kg
[~2022-06-06 11:59] MED LIST changes: +HYDROCODON-ACE1 EAC8 PO; +LIPITOR40 MG PO; +OXYCODONE HCL5 MG PO; +TRAMADOL HCL50 MG PO; +ULTRAM50 MG PO; +ZYRTEC10 MG PO
--- OUTSIDE RECORDS SUMMARY | 2022-06-06 12:02 | XMS ---
PreManage Notification: JANICE AYALA Security Legislative Aide Events No recent Security Events currently on file CRITERIA MET - PDMP CARE PROVIDERS [place] Physician Missile Inspector Preflight Current PHONE: Unknown JUANITA BAILEY Mobile Device Developerdelia Faustin PHONE: [phone] KRISTEN JONES Family [facility] Current PHONE: [phone] FARIDA BURROUGHS Family [facility] Current PHONE: Unknown Rachna has no Care Guidelines for this patient. Callie VISIT COUNT (12 MO.) 1 [facility] TOTAL 1 NOTE: Visits indicate total known visits. ED/UCC VISIT TRACKING (12 MO.) 06/06/2022 12:00 [facility] [place] TYPE: Emergency COMPLAINT: - DENTAL PAIN INPATIENT VISIT TRACKING (12 MO.) No inpatient visits to display in this time frame [email or web address]
[2022-06-06] MEDS ORDERED: PENICILLIN V P500 MG PO (18:27)
[2022-06-06] MEDS ORDERED: HYDROCODON-ACE1 EA10 PO (18:27)
== END 2022-06-06 18:45 | disposition home or self-care (01) ==
LOC: ED 11:59
DX: K08.89 Other specified disorders of teeth and supporting structures (principal); I10 Essential (primary) hypertension; E11.9 Type 2 diabetes mellitus without complications; Z88.6 Allergy status to analgesic agent; Z88.1 Allergy status to other antibiotic agents; Z79.899 Other long term (current) drug therapy
CPT/HCPCS: 99282; A9270

== ENCOUNTER 2023-08-14 08:12 | Inpatient (IN) | payer MEDICARE, OTHER ==
[~2023-08-14] VITALS: Ht 160 cm; Wt 72.4 kg
[~2023-08-14 08:12] MED LIST changes: +PENICILLIN V P500 MG PO
--- OUTSIDE RECORDS SUMMARY | 2023-08-14 08:16 | XMS ---
PreManage Notification: JANICE AYALA Security Welt Pocket Machine Operator Events No recent Security Events currently on file CRITERIA MET - PDMP CARE PROVIDERS FARIDA BURROUGHS [facility] 11/09/2020-Current PHONE: Unknown [place]ON FRANCE Physician Heating And Cooling Technician Current PHONE: Unknown JUANITA BAILEY Armed Custom Protection Officerdelia Faustin PHONE: [phone] KRISTEN JONES [facility] Current PHONE: [phone] Rachna has no Care Guidelines for this patient. Callie VISIT COUNT (12 MO.) 1 BROOKE Benz TOTAL 1 NOTE: Visits indicate total known visits. ED/UCC VISIT TRACKING (12 MO.) 08/14/2023 08:13 [facility] TYPE: Emergency COMPLAINT: - BODY ACHES INPATIENT VISIT TRACKING (12 MO.) No inpatient visits to display in this time frame [email or web address]
[2023-08-14 08:31] LABS: BASOPHILS 0.2 % (0-2); EOSINOPHILS 0.1 % (0-6); HEMATOCRIT 47.3 % (35.0-50.0); HEMOGLOBIN 15.6 g/dL (12.0-18.0); LYMPHOCYTES 5.7 % (24-44); MCH 29.3 (27-36); MCV 88.8 fl (81-99); MONOCYTES 3.8 % (0-12); NEUTROPHILS 90.2 % (39-80); PLATELET COUNT 247 K/uL (140-440); RBC 5.33 M/ul (4.3-5.7); RDW 15.7 (10.5-15.0)
[2023-08-14 08:59] LABS: ALBUMIN 3.8 g/dL (3.4-5.0); ALBUMIN/GLOBULIN RATIO 1.23 (1.1-2.4); ANION GAP 24.7 (7-21); BILIRUBIN, TOTAL 0.5 ng/dL (0.2-1.0); BUN/CREATININE RATIO 11.02 (6.0-28.6); CALCIUM 9.4 mg/dL (8.5-10.1); CREATININE, SERUM 2.45 mg/dL (0.55-1.02); MAGNESIUM 1.7 mg/dL (1.8-2.4); POTASSIUM 2.7 mmol/L (3.5-5.1); PROTEIN, TOTAL 6.9 g/dL (6.4-8.2)
[2023-08-14 09:07] LABS: BILIRUBIN, URINE NEGATIVE (negative); BLOOD/HGB, URINE TRACE-I (Negative); KETONE, URINE TRACE (Negative); LEUK ESTERASE, URINE NEGATIVE (negative); NITRITE, URINE POSITIVE (negative); PH, URINE 5.5 (5-7)
[2023-08-14 09:10] LABS: INFLUENZA B NAA NEGATIVE (NEGATIVE); RESPIRATORY SYNCYTIAL VIR NAA NEGATIVE (NEGATIVE)
[2023-08-14 09:14] LABS: CRYSTALS, URINE NONE SEEN (0-1+); EPITHELIAL CELLS, URINE SQUAMOUS 1+ /lpf (0-1+); RED BLOOD CELLS, URINE 0-1 /hpf (0-5)
[2023-08-14 09:15] LABS: BACTERIA, URINE 2+ /hpf (negative); CASTS, URINE NONE SEEN \\lpf; COLLECTION TYPE, URINE CLEAN CATCH; REFLEX CULTURE, URINE Yes (No)
[2023-08-14 09:52] LABS: PH, VENOUS 7.393 (7.31-7.41)
[2023-08-14] MEDS ORDERED: DOXYCYCLINE HY100 M3 PO (12:08)
[2023-08-14] MEDS ORDERED: CLINDAMYCIN PHO30 M1 TOP (12:09)
[2023-08-14] MEDS ORDERED: TRAMADOL HCL50 MG PO (12:09)
[2023-08-14] MEDS ORDERED: CALCITRIOL0.25 MCG PO (12:10)
[2023-08-14] MEDS ORDERED: ATORVASTATIN CA40 MG PO (12:11)
[2023-08-14] MEDS ORDERED: OXYBUTYNIN CHLO10 MG PO (12:12)
[2023-08-14] MEDS ORDERED: ALLOPURINOL100 MG PO (12:15)
[2023-08-14 12:16] VITALS: BP 182/93
--- NOTE | 2023-08-14 12:18 | NUR ---
RECEIVED PT REPORT FROM WALTER MOCTEZUMA FROM ED. PT ARRIVED VIA ED STRETCHER AND WAS ABLE TO STAND AND TRANSFER TO BED WITH 1PA. PT REPORTS SHE'S "BEEN SHAKY EVER SINCE I CAME TO THE HOSPITAL". PT ALSO REQUESTING TUMS AT THIS TIME FOR STOMACH PAIN, STATES SHE TAKES TUMS AT HOME. AFTER ADMISSION, PT WAS GIVEN PO PEPCID PER EMAR AND SHE TOLERATED SWALLOWING SIPS OF WATER WELL WITH PILL. PT RATES HER STOMACH PAIN A 6 OUT OF 10, NO NAUSEA/VOMITING, HAD A GASTRIC BYPASS IN 2004 AND STATES SHE IS UNABLE TO VOMIT. VSS. IV PATENT, NO RETURN, NO PAIN/SWELLING, NO LEAKING, FLUSHED WITH 10ML NS, IV IS AN 18G FIELD START, DRESSING INTACT. PT'S SISTER IS AT BEDSIDE. PT'S SISTER STATES THAT THE PT USES A WALKER AT HOME THAT HAS A SEAT ON IT BUT TYPICALLY GETS AROUND ON HER OWN. PT STATES SHE IS USUALLY INCONTINENT AND WEARS BRIEFS. PT WAS PROVIDED WITH WARM BLANKETS, CALL LIGHT AND BEDSIDE TABLE IN REACH. PT DECLINES USE OF PT LOCK BOX IN ROOM. NO FURTHER NEEDS AT THIS TIME.
[2023-08-14 12:22] LABS: ACETAMINOPHEN 6 ug/mL (10-30); SALICYLATE 12.9 mg/dL (2.8-20.0)
[2023-08-14] MEDS ORDERED: FAMOTIDINE20 MG PO (13:25)
[2023-08-14] MEDS ORDERED: EXCEDRIN EXTRA1 EAC1 PO (13:30)
--- NOTE | 2023-08-14 14:20 | NUR ---
UR NOTE MCG URINARY TRACT INFECTION (ISC) INPATIENT 08/14/23 MEETS CRITERIA
--- NOTE | 2023-08-14 16:00 | NUR ---
Spoke with Brigitte and her sister Leah. Pt lives at [facility]. She has multiple pieces of DME and denies further needs. Pt has not felt well in a week. Sister is with her and assists her as needed. Pt plans on dc to [facility]. 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 Denies any further needs at this time.
[2023-08-14 17:09] VITALS: BP 143/74
--- NOTE | 2023-08-14 17:58 | NUR ---
STANDBY ASSIST PT AMBULATES TO TOILET USING FWW. NO C/O DIZZINESS/LIGHTHEADEDNESS, NO N/V, NO PAIN. PT REPORTS HER BELLY PAIN IS GONE. SHE FEELS SHAKY STILL. ABLE TO VOID 150ML CLEAR YELLOW URINE. PT AMBULATED WITH IV POLE MANAGEMENT, SBA ONLY USING FWW AND BACK IN BED. LAB IN ROOM TO DRAW BLOOD. CALL LIGHT IN REACH, BED RAILS UP X4, FAMILY AT BEDSIDE.
--- NOTE | 2023-08-14 18:22 | NUR ---
PT ARRIVED TO THE FLOOR AT ABOUT 1218 HOURS THIS DATE. SHE WAS ABLE TO STAND AND SHUFFLE TO THE BED FROM THE STRETCHER WITH 1PA. PT WAS VERY SHAKY AND STATED THAT STARTED SINCE SHE'S BEEN IN THE HOSPITAL. FOR THE FIRST COUPLE OF HOURS, THE PT WAS MOANING AND COMPLAINING OF PAIN IN HER BELLY, ASKING FOR TUMS. PEPCID WAS ADMINISTERED PO PER EMAR AND AN HOUR LATER, PT WAS STILL COMPLAINING OF STOMACH PAIN BUT NO NAUSEA. PT WAS MEDICATED WITH 4MG ZOFRAN IV PER EMAR WHICH SHE STATED HELPED, WHILE ALSO RECEIVING 125ML/HR D5LR WITH 20MEK OF POTASSIUM PER EMAR. ABOUT 30 MINUTES AFTER RECEIVING ZOFRAN, THE PT WAS SMILING AND STATES THAT HER STOMACH PAIN IS GONE, "I'M NOT COUGHING ANYMORE, AND I'M NOT FUZZY HEADED". PT ABLE TO STAND AND AMBULATE USING FWW AND 1PA TO TOILET TO VOID BUT NEEDS VERBAL CUEING, LINE AND TUBE MANAGEMENT WITH SBA. SHE HAS BEEN USING MOISTENED MOUTH SWABS, USES THE CALL LIGHT APPROPRIATELY, AND TOLERATED SWALLOWING SIPS OF WATER TO TAKE HER PEPCID, WITHOUT DIFFICULTY. VISITORS HAVE BEEN IN AND OUT OF HER ROOM ALL DAY.
[2023-08-14 18:30] LABS: ANION GAP 20.6 (7-21); BUN/CREATININE RATIO 10.81 (6.0-28.6); CREATININE, SERUM 2.22 mg/dL (0.55-1.02); POTASSIUM 3.6 mmol/L (3.5-5.1)
--- NOTE | 2023-08-14 19:10 | NUR ---
REPORT RECEIVED FROM WALTER RODRIGUEZ. pt RESTING IN BED, VISITING WITH GUEST. IVF INFUSING WNL. CALL LIGHT IN REACH.
[2023-08-14 19:59] VITALS: BP 147/81
--- NOTE | 2023-08-14 20:12 | NUR ---
Patient up to restroom to void, SBA with walker, tolerated ambulation well. Vital signs and blood sugar taken at this time. Patient reports feeling nauseated-updated primary RN, Alize. Bed alarm and call light within reach.
--- NOTE | 2023-08-14 20:15 | NUR ---
pt AWAKE RESTING IN BED WATCHING TV. DENIES NAUSEA. COMPLAINS OF STOMACH DISCOMFORT. REQUESTS PRN ZOFRAN, ADMINISTERED AT THIS TIME WNL. IVF INFUSING ORDERED, FLUSHED WNL, BLOOD RETURN NOTED. ASSESSMENT COMPLETE. pt IS ALERT AND ORIENTED TO ALL. VSS. CALL LIGHT IN REACH.
--- NOTE | 2023-08-15 00:16 | NUR ---
CHECKED ON pt. RESTING IN BED AWAKE. ROLLED TOWEL PROVIDED FOR NECK PILLOW. DENIES ADDITIONAL NEEDS. CALL LIGHT IN REACH.
[2023-08-15 02:39] VITALS: BP 164/85
--- NOTE | 2023-08-15 02:43 | NUR ---
pt SLEEPING, AWAKENS TO VOICE. VSS. CBG 109. SBA TO RESTROOM FOR VOID AND BACK TO BED. IVF INFUSING WNL. CALL LIGHT IN REACH. NO ADDITIONAL REQUESTS.
[2023-08-15 05:16] VITALS: BP 141/78
[2023-08-15 05:20] LABS: BASOPHILS 0.4 % (0-2); EOSINOPHILS 0.1 % (0-6); HEMATOCRIT 41.9 % (35.0-50.0); HEMOGLOBIN 13.6 g/dL (12.0-18.0); LYMPHOCYTES 15.9 % (24-44); MCHC 32.5 g/dl (30-36); MCV 89.4 fl (81-99); MONOCYTES 9.9 % (0-12); NEUTROPHILS 73.7 % (39-80); PLATELET COUNT 214 K/uL (140-440); RBC 4.69 M/ul (4.3-5.7); RDW 15.5 (10.5-15.0)
--- NOTE | 2023-08-15 05:21 | NUR ---
CALL LIGHT ANSWERED. pt COMPLAINS OF HEADACHE, STATES "ITS FROM NOT HAVING MY NECK PILLOW". WARM PACK PROVIDED AND WRAPPED IN TOWEL. pt DENIES NEED TO CALL MD FOR MEDICATIONS FOR GONSALVES PAIN. VSS. DENIES TOILETING NEEDS. NEW BAG IVF INFUSING WNL. CALL LIGHT IN REACH.
[2023-08-15 05:34] LABS: ALBUMIN/GLOBULIN RATIO 1.2 (1.1-2.4); ANION GAP 15.8 (7-21); BILIRUBIN, TOTAL 0.3 ng/dL (0.2-1.0); BUN/CREATININE RATIO 11.05 (6.0-28.6); CALCIUM 8.5 mg/dL (8.5-10.1); CREATININE, SERUM 2.08 mg/dL (0.55-1.02); MAGNESIUM 1.6 mg/dL (1.8-2.4); PHOSPHORUS, INORGANIC 3.4 mg/dL (2.5-4.9); POTASSIUM 3.8 mmol/L (3.5-5.1); PROTEIN, TOTAL 5.5 g/dL (6.4-8.2)
--- NOTE | 2023-08-15 07:15 | NUR ---
Report received from Alize WATSON. Patient resting in bed with eyes closed, even and unlabored respirations, no needs identified at this time. Call light in reach.
--- NOTE | 2023-08-15 09:00 | NUR ---
Spoke with Brigitte. She states she is feeling much better today. She also appears to feel better. Sister is in the room. Pt denies any needs and plans to discharge when she meets criteria for dc. Patient will return to [facility].
--- NOTE | 2023-08-15 09:28 | NUR ---
Patient assessment complete. Speech therapy in room for eval. Recommends regular diet with thin liquids. IVF infusing WNL, IV ABX initiated. PO meds taken WNL. Lungs clear, HRR. Pt reports no pain. No further needs at this time. Call light in reach, patient sister at bedside.
--- NOTE | 2023-08-15 09:41 | NUR ---
MED REC COMPLETE
[2023-08-15 10:50] VITALS: BP 125/66
--- NOTE | 2023-08-15 11:48 | NUR ---
Patient up to bathroom with assistance from student nurse. IVF infusing WNL.
--- NOTE | 2023-08-15 12:26 | NUR ---
UR NOTE MCG URINARY TRACT INFECTION (ISC) INPATIENT 08/15/23 MET GL DAY 2
--- NOTE | 2023-08-15 13:52 | NUR ---
PT APPEARED TO BE IN OVERALL GOOD SPIRITS. ACCEPTED OFFER OF COLORING BOOK WHICH I PROVIDED. I EXERCISED MINISTRY OF PRESENCE PT TALKED OF ASPEN AND HOPES. PRAYED FOR CONGREGATIONAL OF HEALTH AND ABIDING PEACE.
--- NOTE | 2023-08-15 14:15 | NUR ---
DISCUSSED PLAN OF CARE WITH DR TONG, MAG BARRON ORDERED, STATES DOES NOT WANT LACTIC ACID REDRAW, PT SALINE LOCKED WELL AT THIS TIME
[2023-08-15 15:01] VITALS: BP 133/60
--- NOTE | 2023-08-15 15:19 | NUR ---
IV magnesium infusing WNL. IVF DC'd per order. CBG checked, 138. No SS insulin administered.
[2023-08-15 18:40] VITALS: BP 168/73
--- NOTE | 2023-08-15 19:38 | NUR ---
REPORT RECEIVED FROM DAY SHIFT RN. PT LYING IN BED ALERT AND ORIENTED. C/O REFLUX FROM DINNER. NIO PLACED. NO FURTHER NEEDS. WHITE BOARD UPDATED. CALL LIGHT IN REACH.
[2023-08-15 19:56] VITALS: BP 158/68
--- NOTE | 2023-08-15 20:22 | NUR ---
CALL LIGHT ANSWERED. PT UP TO BR WITH FWW AND MINIMAL SBA TO VOID. BACK TO BED, RUSTY WELL. NO FURTHER NEEDS.
--- NOTE | 2023-08-15 21:05 | NUR ---
PT CONTINUES TO COMPLAIN OF REFLUX. NOTIFIED. NEW ORDERS RECEIVED. EVENING ASSESSMENT COMPLETE. SCHEDULED MEDS ADMIN PER EMAR. BLOOD SUGAR WNL. SLIDING SCALE INSULIN HELD. ASSISTED PT TO REPOSITION WITH HOB ELEVATED. PT DENIES QUESTIONS OR CONCERNS. CALL LIGHT IN REACH.
--- NOTE | 2023-08-15 21:15 | NUR ---
SBA TO BATHROOM AND BACK TO BED. VOIDED 200ML YELLOW URINE. PATIENT C/O "WEAK" STATED "I NEED TO BE KNOCKED OUT" FROM HAVING PAIN. PATIENT WAS SMILING. TOLD PATIENT I WILL FIND OUT FROM YOUR NURSE. DENIES FURTHER NEEDS AT THIS TIME. CALL LIGHT WITHIN REACH.
--- NOTE | 2023-08-15 23:09 | NUR ---
PT RESTING WITH EYES CLOSED. AWAKENS EASILY. GI COCKTAIL ADMIN FOR ESOPHAGEAL DISCOMFORT. HOB ELEVATED. NO FURTHER NEEDS.
--- NOTE | 2023-08-16 00:28 | NUR ---
CALL LIGHT ANSWERED. PT UP TO BR WITH MINIMAL SBA TO VOID. BACK TO BED, RUSTY WELL. GAIT STEADY. PT REPORTS ESOPHAGEAL IRRITATION IMPROVING. HOB ELEVATED. NO FURTHER NEEDS.
[2023-08-16 05:46] VITALS: BP 172/91
[2023-08-16 05:49] LABS: BASOPHILS 0.3 % (0-2); EOSINOPHILS 0.1 % (0-6); HEMATOCRIT 41.5 % (35.0-50.0); HEMOGLOBIN 13.7 g/dL (12.0-18.0); LYMPHOCYTES 13.4 % (24-44); MCH 29.4 (27-36); MCV 89.2 fl (81-99); MONOCYTES 5.5 % (0-12); NEUTROPHILS 80.7 % (39-80); PLATELET COUNT 199 K/uL (140-440); RBC 4.65 M/ul (4.3-5.7); RDW 15.5 (10.5-15.0)
--- NOTE | 2023-08-16 05:59 | NUR ---
[facility]. SEE PAPER CHARTING.
--- NOTE | 2023-08-16 05:59 | NUR ---
CALL LIGHT ANSWERED. PT REQUESTING AND PROVIDED PRN FOR ACID INDIGESTION. UP TO BR WITH FLARE STITCHER ASSIST. GAIT STEADY. BACK TO BED, RUSTY WELL. VS AND I&O OBTAINED. NO FURTHER NEEDS.
[2023-08-16 06:12] LABS: ALBUMIN/GLOBULIN RATIO 1.11 (1.1-2.4); ANION GAP 13.7 (7-21); BILIRUBIN, TOTAL 0.4 ng/dL (0.2-1.0); BUN/CREATININE RATIO 9.79 (6.0-28.6); CALCIUM 8.5 mg/dL (8.5-10.1); CREATININE, SERUM 1.94 mg/dL (0.55-1.02); MAGNESIUM 2.1 mg/dL (1.8-2.4); PHOSPHORUS, INORGANIC 3.7 mg/dL (2.5-4.9); POTASSIUM 3.7 mmol/L (3.5-5.1); PROTEIN, TOTAL 5.7 g/dL (6.4-8.2)
--- NOTE | 2023-08-16 07:38 | NUR ---
. CALL LIGHT WITHIN REACHRECIEVED REPORT FROM NURSE. PT IS CURRENTLY AWAKE A+O. PT STATES THAT SHE IS HAVING SOME ESOPHAGUS DISCOMFORT. NURSE REPORTED THAT PT HAS HAD DIFFICULTY WITH THAT ALL DURING THE NIGHT. MEDS WERE GIVEN TO HELP ALIEVE THE SITUATION. WILL MONITOR. NO OTHER CARES NEEDED OR REQUESTED AT THIS TIME
--- NOTE | 2023-08-16 09:00 | NUR ---
PT IS COMPLAINING OF ESOPHAGEAL PAIN AND IS REQUESTING PAIN MEDS. NOTIFIED AND SAID HE WILL ROUND ON HER. PT RECIEVED MINT TEA WITH HONEY AND A HOT PACK TO HELP WITH PAIN. NO OTHER CARES NEEDED AT THIS TIME. CALL LIGHT WITHIN REACH
[2023-08-16 09:54] VITALS: BP 142/82
--- NOTE | 2023-08-16 10:10 | NUR ---
DR ORDERED GI COCKTAIL AND PROTONIX IV TO HELP WITH PT ESOPHAGEAL PAIN. PT TOLERATED WELL AND WILL MONITOR TO SEE THAT THERE IS IMPROVEMENT. NO OTHER CONCERNS AT THIS TIME CALL LIGHT WITHIN REACH
--- NOTE | 2023-08-16 10:46 | NUR ---
PT APPEARED TO BE SLEEPING. DID NOT DISTURB. PRAYED SILENTLY FOR PEACE AND COMFORT.
--- NOTE | 2023-08-16 10:47 | NUR ---
INTO CHECK ON PATIENT, PATIENT STATES SHE IS CURRENTLY HAVING. PAIN. SHE STATES THAT STAFF HAS JUST GIVEN HER MEDICATION. PATIENT IS FRUSTRATED WITH STILL BEING IN PAIN. PATIENT STATING THAT SHE HAS NOT BEEN GIVEN PAIN MEDICATION YET. ASKED PATIENT IF SHE NORMALLY TAKES SOMETHING FOR PAIN AT HOME. SHE STATES SHE HAS TRAMADOL WHICH SHE TAKES ON OCCASION WHEN SHE IS PAINFUL AND CANNOT SLEEP. ADVISED I WILL UPDATE STAFF. KATI PERALES RN NOTIFIED.
--- NOTE | 2023-08-16 11:28 | NUR ---
PT STATES THAT THE GI COCKTAIL IS HELPING WITH HER ESOPHAGUS PAIN. DR RAMIREZ SAID THAT HE WILL KEEP PT FOR ANOTHER DAY AND ASSESS HOW SHE DOES WITH THE ESOPHAGUS PAIN. PT REQUESTED FOR A HOT PACK. PT IS CURRENTLY IN BED RESTING. NO OTHER CARES NEEDED AT THIS TIME CALL LIGHT WITHIN REACH.
--- NOTE | 2023-08-16 13:22 | NUR ---
pt pain level was at 9. offered tramadol and administered upon pt request. will continue to monitor. no other cares needed at this time. call light within reach
[2023-08-16 14:53] VITALS: BP 127/73
--- NOTE | 2023-08-16 16:19 | NUR ---
PT IS CURRENTLY IN BED RESTING WITH NO PAIN. GI COCKTAIL GIVEN. AND PT HAS REQUESTED CHICKEN BROTH. FAMILY IN ROOM. NO OTHER CARES NEEDED AT THIS TIME CALL LIGHT WITHIN REACH
[2023-08-16 18:12] VITALS: BP 143/72
--- NOTE | 2023-08-16 19:07 | NUR ---
PT HAD COMPLAINTS OF ESOPHAGEAL, AND ABDOMINAL PAIN. PT REQUESTED PAIN MEDS BUT DR RAMIREZ DID NOT THINK IT NECESSARY. DR RAMIREZ DID ORDER FPOR PROTONIX IV AND GI COCKTAIL. GI COCKTAIL WORKS REALLY WELL. TRAMADOL WAS GIVEN FOR PAIN. PT PAIN LEVELS DECREASED SIGNIFICANTLY. PT HAS HAD DIFFICULTY EATING FOOD. OFFERED CHICKEN BROTH. PT TOLERATED WELL. ALSO OFFERED HIGH PROTEIN ENSURE. PT STATES SHE JOE TRY TO DRINK IT. ALL VITALS AND ASSESSMENTS SHOW NO ABNORMAL FINDINGS OUTSIDE OF THE GI SYSTEM. PT AMBULATES WELL WITH SBA. NO OTHER CONCERNS NOTED
--- NOTE | 2023-08-16 19:38 | NUR ---
REPORT RECIEVED FROM DAY SHIFT RN. PATIENT RESTING IN BED. RESPIRATIONS EVEN AND UNLABORED. NO FURTHER NEEDS. CALL LIGHT IN REACH.
[2023-08-16 21:48] VITALS: BP 140/86
--- NOTE | 2023-08-16 21:50 | NUR ---
PATIENT RESTING IN BED. VS AND I&Os OBTAINED AND RECORDED. EVENING MEDICATIONS ADMINISTERED, SEE MAR. PRN MEDICATION ADMINSITERED, PER PATIENT REQUEST. ASSESSMENT COMPLETED. LUNG SOUNDS WNL. FRESH WATER PROVIDED. PATIENT REPORTS NO FURTHER NEEDS. CALL LIGHT IN REACH.
--- NOTE | 2023-08-16 22:19 | NUR ---
PATIENT SITTING UP IN BED. RESPIRATIONS EVEN AND UNLABORED. NO FURTHER NEEDS. CALL LIGHT IN REACH.
--- NOTE | 2023-08-16 22:25 | EKG ---
[facility] [address] [facility] [place] [address] Signed Sinus rhythm with marked sinus arrhythmia Otherwise normal ECG When compared with ECG of 11-NOV-2020 08:40, T wave inversion no longer evident in Lateral leads Confirmed by Uzair Ramirez MD () on 08/16/2023 10:24:51 PM Electronically Signed By: UZAIR RAMIREZ MD 08/16/235 PATIENT NAME: JANICE AYALA KIA Electrocardiogram DATE OF : 52 PHYSICIAN: UZAIR RAMIREZ MD REPORT #: [id number] REPORT IS CONFIDENTIAL AND NOT TO BE RELEASED WITHOUT AUTHORIZATION
--- NOTE | 2023-08-16 23:35 | NUR ---
ROUNDING ON PATIENT. PATIENT RESTING IN BED WATCHING TV. SCDs PLACED ON PATIENT. NO FURTHER NEEDS. CALL LIGHT IN REACH.
--- NOTE | 2023-08-17 01:41 | NUR ---
PATIENT IN BED WATCHING TV. PATIENT REPORTS NO FURTHER NEEDS. CALL LIGHT IN REACH.
--- NOTE | 2023-08-17 04:10 | NUR ---
PATIENT SBA WITH FWW TO BATHROOM TO VOID YELLOW URINE. SECOND ASSESSMENT COMPLETE. PATIENT BACK TO BED. SCDs IN PLACE. PRN ACID REFLUX MEDICATION ADMINISTERED, PER PATIENT REQUEST. NO FURTHER NEEDS. CALL LIGHT IN REACH.
[2023-08-17 05:41] LABS: BASOPHILS 0.4 % (0-2); EOSINOPHILS 1.1 % (0-6); HEMATOCRIT 41.5 % (35.0-50.0); HEMOGLOBIN 13.5 g/dL (12.0-18.0); LYMPHOCYTES 27.2 % (24-44); MCH 29.2 (27-36); MCHC 32.4 g/dl (30-36); MONOCYTES 9.7 % (0-12); NEUTROPHILS 61.6 % (39-80); PLATELET COUNT 175 K/uL (140-440); RBC 4.61 M/ul (4.3-5.7); RDW 15.5 (10.5-15.0)
[2023-08-17 06:01] LABS: ALBUMIN 2.8 g/dL (3.4-5.0); ALBUMIN/GLOBULIN RATIO 1.12 (1.1-2.4); ANION GAP 11.7 (7-21); BILIRUBIN, TOTAL 0.5 ng/dL (0.2-1.0); BUN/CREATININE RATIO 10.78 (6.0-28.6); CALCIUM 8.4 mg/dL (8.5-10.1); CREATININE, SERUM 2.04 mg/dL (0.55-1.02); MAGNESIUM 2.2 mg/dL (1.8-2.4); PHOSPHORUS, INORGANIC 3.5 mg/dL (2.5-4.9); POTASSIUM 3.7 mmol/L (3.5-5.1); PROTEIN, TOTAL 5.3 g/dL (6.4-8.2)
[2023-08-17 06:18] VITALS: BP 128/69
--- NOTE | 2023-08-17 06:39 | NUR ---
PATIENT RESTING IN BED. VS AND I&Os OBTAINED AND RECORDED. FRESH WATER PROVIDED. PATIENT STATES NO FURHTER NEEDS. CALL LIGHT IN REACH.
--- NOTE | 2023-08-17 07:32 | NUR ---
PATIENT SITTING UPRIGHT IN BED. PATIENT AWAKE AND REQUESTING TO TAKE A SHOWER. PATIENT STATED NO FURTHER NEEDS AT THIS TIME. CALL LIGHT AND PERSONAL BELONGINGS ARE WITHIN REACH.
--- NOTE | 2023-08-17 08:45 | NUR ---
PATIENT 0800 AND 0900 MEDICATIONS ADMINISTERED PER THE EMAR. NEW IV SITE IN THE LEFT HAND STARTED BY RN. BRISK BLOOD RETURN AND FLUSHED WELL. PATIENT STATED NO PAIN. PATIENT STATED NO FURTHER NEEDS AT THIS TIME. CALL LIGHT AND PERSONAL BELONGINGS ARE WITHIN REACH.
[2023-08-17 09:52] VITALS: BP 138/72
--- NOTE | 2023-08-17 10:00 | NUR ---
Spoke with Brigitte and she plans on dc to home today. Sister will drive her. She denies needs. Pt has DME at home and denies any needs for discharge.
--- NOTE | 2023-08-17 10:18 | NUR ---
PT IN GOOD SPIRITS. STATES IS FEELING BETTER. CONSENTED TO PRAYER. PRAYED FOR ONGOING BLESSING AND GRATITUDE FOR RELEIF.
[2023-08-17] MEDS ORDERED: CEFPODOXIME PR200 MG PO (10:27)
--- NOTE | 2023-08-17 10:34 | NUR ---
PATIENT FULL ASSESSMENT COMPLETE AND DOCUMENTED IN THE CHART. PATIENT STATED NO PAIN. CARDIAC ASSESSMENT UNREMARKABLE. NORMAL S1 AND S2 HEART SOUNDS. RADIAL AND PEDAL PULSES STRONG. CAPILLARY REFILL IN THE UPPER AND LOWER EXTREMITIES WERE LESS THAN 3 SECONDS. LUNG SOUNDS CLEAR IN ALL LOBES. PATIENT IV IN THE LEFT FOREARM REMOVED DUE TO INFILTRATION. PATIENT SKIN LOOKED GOOD WITH NO VISIBLE PRESSURE INJURIES. PATIENT AMBULATED TO THE BATHROOM WITH FRONT WHEELED WALKER. PATIENT VOIDED YELLOW URINE WITH NO MALODOR. PATIENT NOW SITTING UPRIGHT IN THE RECLINER AND REQUESTING TO TAKE A SHOWER. VITAL SIGNS AND INTAKE AND OUTPUT VALUES ARE COMPLETE AND DOCUMENTED IN THE CHART. PATIENT STATED NO FURTHER NEEDS AT THIS TIME. CALL LIGHT AND PERSONAL BELONGINGS ARE WITHIN REACH.
--- NOTE | 2023-08-17 11:51 | NUR ---
PATIENT SHOWER COMPLETE. PATIENT DRESSED IN PERSONAL CLOTHES AND NOW SITTING UPRIGHT IN THE RECLINER. PATIENT CALL LIGHT AND PERSONAL BELONGINGS ARE WITHIN REACH.
[2023-08-17] MEDS ORDERED: TRAMADOL HCL50 MG PO (12:12)
--- NOTE | 2023-08-17 12:15 | NUR ---
DURING THE PATIENTS SHOWER RN NOTICED A NON-BLANCHABLE RASH. NOTIFIED AND HE WENT AND LOOKED. PATIENT EDUCATED ON HOW THE USE OF HEAT PACKS CAN CAUSE A HEAT RASH. INSTRUCTED TO USE LOTION AT HOME. PLAN TO DISCHARGE TODAY. PATIENT EXPRESSED NO CONCERN AND THAT SHE FORGOT THE RASH WAS THERE. PATIENT STATED NO FURTHER NEEDS AT THIS TIME. CALL LIGHT AND PERSONAL BELONGINGS ARE WITHIN REACH.
--- NOTE | 2023-08-17 12:28 | NUR ---
PATIENT DISCHARGE INTRUCTIONS AND EDUCATION PROVIDED. PATIENT STATED SHE HAD NO QUESTIONS. DISCHARGE PAPER SIGNED. PLAN IS FOR THE PATIENT TO EAT LUNCH AND THEN GET A RIDE HOME FROM A FAMILY MEMBER. PATIENT STATED NO FURTHER NEEDS AT THIS TIME. CALL LIGHT AND PERSONAL BELONGINGS ARE WITHIN REACH.
--- NOTE | 2023-08-17 12:45 | NUR ---
PATIENT BLOOD SUGAR WAS 70. PATIENT EDUCATED ON THE IMPORTANCE OF EATING SOME CRACKERS AND WAITING TO BE DISCHARGED UNTIL THEY EAT SOME OF THEIR LUNCH. PATIENT EXPRESSED UNDERSTANDING. PATIENT FAMILY AT BEDSIDE AND WAITING TO GO HOME. PATIENT AND FAMILY STATED NO FURTHER NEEDS AT THIS TIME. PATIENT CALL LIGHT AND PERSONAL BELONGINGS ARE WITHIN REACH.
== END 2023-08-17 13:15 | disposition home or self-care (01) | DRG 872 ==
LOC: ED 08:12 → MS 11:48
PROVIDERS: Emergency Medicine; ADMIT Family Medicine; ATTEND Family Medicine
DX: A41.9 Sepsis, unspecified organism (principal); N39.0 Urinary tract infection, site not specified; N17.9 Acute kidney failure, unspecified; E87.4 Mixed disorder of acid-base balance; R13.10 Dysphagia, unspecified; F41.9 Anxiety disorder, unspecified; F32.A Depression, unspecified; N18.9 Chronic kidney disease, unspecified; E11.22 Type 2 diabetes mellitus with diabetic chronic kidney disease; N32.81 Overactive bladder; E87.6 Hypokalemia; E83.42 Hypomagnesemia; L08.9 Local infection of the skin and subcutaneous tissue, unspecified; K21.9 Gastro-esophageal reflux disease without esophagitis; E79.0 Hyperuricemia without signs of inflammatory arthritis and tophaceous disease; G43.909 Migraine, unspecified, not intractable, without status migrainosus; E66.9 Obesity, unspecified; B96.20 Unspecified Escherichia coli [E. coli] as the cause of diseases classified elsewhere; E78.00 Pure hypercholesterolemia, unspecified; Z68.35 Body mass index [BMI] 35.0-35.9, adult; Z98.890 Other specified postprocedural states; Z90.710 Acquired absence of both cervix and uterus; Z98.84 Bariatric surgery status; Z88.1 Allergy status to other antibiotic agents; Z88.8 Allergy status to other drugs, medicaments and biological substances; Z79.899 Other long term (current) drug therapy; Z79.891 Long term (current) use of opiate analgesic; Z79.2 Long term (current) use of antibiotics; Z11.52 Encounter for screening for COVID-19
CPT/HCPCS: 36415; 51701; 71045; 80048; 80053; 81001; 82010; 82803; 83036; 83605; 83735; 84100; 84484; 85025; 87040; 87088; 87186; 87502; 92526; 92610; 93005; 93010; 99285-25; A9270; C9113; C9803; G0480; J0696; J1815; J2405; J3475; J3480; J7030; J7121; U0002

== ENCOUNTER 2024-07-06 17:52 | Emergency (ER) | payer MEDICARE, OTHER ==
[~2024-07-06] VITALS: Ht 160 cm; Wt 80.8 kg
[~2024-07-06 17:52] MED LIST changes: +ALLOPURINOL100 MG PO; +ATORVASTATIN CA40 MG PO; +CALCITRIOL0.25 MCG PO; +CEFPODOXIME PR200 MG PO; +CLINDAMYCIN PHO30 M1 TOP; +DOXYCYCLINE HY100 M3 PO; +EXCEDRIN EXTRA1 EAC1 PO; +FAMOTIDINE20 MG PO; +OXYBUTYNIN CHLO10 MG PO
[2024-07-06 18:20] LABS: BASOPHILS 0.1 % (0-2); EOSINOPHILS 2.7 % (0-6); HEMATOCRIT 40.7 % (35.0-50.0); HEMOGLOBIN 13.7 g/dL (12.0-18.0); LYMPHOCYTES 14.7 % (24-44); MCH 29.4 (27-36); MCHC 33.7 g/dl (30-36); MCV 87.2 fl (81-99); MONOCYTES 0.5 % (0-12); PLATELET COUNT 247 K/uL (140-440); RBC 4.67 M/ul (4.3-5.7); RDW 16.3 (10.5-15.0)
[2024-07-06 18:38] LABS: ALBUMIN 3.7 g/dL (3.4-5.0); ALBUMIN/GLOBULIN RATIO 1.23 (1.1-2.4); ANION GAP 18.7 (7-21); BILIRUBIN, TOTAL 0.5 ng/dL (0.2-1.0); BUN/CREATININE RATIO 16.95 (6.0-28.6); CREATININE, SERUM 2.3 mg/dL (0.55-1.02); POTASSIUM 3.7 mmol/L (3.5-5.1); PROTEIN, TOTAL 6.7 g/dL (6.4-8.2)
[2024-07-06 18:41] LABS: INFLUENZA B NAA NEGATIVE (NEGATIVE); RESPIRATORY SYNCYTIAL VIR NAA NEGATIVE (NEGATIVE)
[2024-07-06] MEDS ORDERED: HYDROmorphone HCL 1 MG/ML SYR IV PRN (18:45)
[2024-07-06] MEDS ORDERED: ondansetron HCL 4 MG/2 ML VIAL IV ONE (18:45)
[2024-07-06] MEDS ORDERED: SODIUM CHLORIDE 0.9% 1,000 ML IV ONE (18:45)
[2024-07-06] MEDS ORDERED: ONDANSETRON 4 MG HOME.PACK SL ONE (20:30)
[2024-07-06] MEDS ORDERED: ACETAMINOPHEN/CODEINE #3 1 TAB HOME.PACK PO ONE (20:30)
[2024-07-06] MEDS ORDERED: ALBUTEROL SULFATE 8 GM HOME.PACK INH ONE (20:30)
[2024-07-06] MEDS ORDERED: INHALER, ASSIST DEVICES 1 EACH SPACER MISC ONE (20:30)
[2024-07-06 20:53] VITALS: BP 138/47
== END 2024-07-06 20:53 | disposition home or self-care (01) ==
LOC: ED 17:52
PROVIDERS: Emergency Medicine
DX: B34.9 Viral infection, unspecified (principal); I10 Essential (primary) hypertension; E11.9 Type 2 diabetes mellitus without complications; F32.A Depression, unspecified; E78.00 Pure hypercholesterolemia, unspecified; Z88.6 Allergy status to analgesic agent; Z88.1 Allergy status to other antibiotic agents; Z79.899 Other long term (current) drug therapy
CPT/HCPCS: 36415; 71045; 71260; 80053; 83880; 84484; 85025; 85379; 87502; 96361; 96375; 99284-25; A9270; J1170; J2405; J7030; Q9967; U0002

== ENCOUNTER 2025-01-31 20:02 | Emergency (ER) | payer MEDICARE, OTHER ==
[~2025-01-31] VITALS: Ht 160 cm; Wt 80.7 kg
[2025-01-31] MEDS ORDERED: LORATADINE10 MG PO (20:10)
[2025-01-31] MEDS ORDERED: SUCRALFATE1 GM PO (20:12)
[2025-01-31] MEDS ORDERED: CALCITRIOL0.25 MCG PO (20:13)
[2025-01-31 20:22] LABS: BASOPHILS 0.6 % (0-2); EOSINOPHILS 2.9 % (0-6); HEMATOCRIT 39.3 % (35.0-50.0); HEMOGLOBIN 13.1 g/dL (12.0-18.0); LYMPHOCYTES 26.2 % (24-44); MCH 26.5 (27-36); MCHC 33.4 g/dl (30-36); MCV 79.4 fl (81-99); NEUTROPHILS 62.3 % (39-80); PLATELET COUNT 281 K/uL (140-440); RBC 4.95 M/ul (4.3-5.7); RDW 22.4 (10.5-15.0)
[2025-01-31 20:33] LABS: INR 1.03 (0.80-1.30); PROTIME 12.9 Sec (11.2-14.2)
[2025-01-31 20:46] LABS: ALBUMIN 3.8 g/dL (3.4-5.0); ALBUMIN/GLOBULIN RATIO 1.36 (1.1-2.4); ANION GAP 18.7 (7-21); BILIRUBIN, TOTAL 0.4 mg/dL (0.2-1.0); BUN/CREATININE RATIO 13.92 (6.0-28.6); CALCIUM 9.1 mg/dL (8.5-10.1); CREATININE, SERUM 2.37 mg/dL (0.55-1.02); MAGNESIUM 2.6 mg/dL (1.8-2.4); POTASSIUM 3.7 mmol/L (3.5-5.1); PROTEIN, TOTAL 6.6 g/dL (6.4-8.2)
[2025-01-31] MEDS ORDERED: MORPHINE SULFATE 4 MG/ML VIAL IV ONE (21:00)
[2025-01-31] MEDS ORDERED: ondansetron HCL 4 MG/2 ML VIAL IV ONE (21:15)
[2025-01-31] MEDS ORDERED: LIDOCAINE & ANTACID 35 ML BTL PO ONE (21:30)
[2025-01-31] MEDS ORDERED: CARAFATE1 GM PO (21:47)
[2025-01-31 22:00] VITALS: BP 172/94
[2025-01-31] MEDS ORDERED: hydrOXYzine pamoate 50 MG CAP PO ONE (22:00)
--- NOTE | 2025-02-01 12:45 | EKG ---
[facility] [address] [facility] [place] [address] Signed Normal sinus rhythm with sinus arrhythmia Normal ECG When compared with ECG of 16-Aug-2023 No significant change was found Confirmed by Srinivasan Fernandes MD ([id number]) on 02/01/2025 12:45:16 PM Electronically Signed By: SRINIVASAN FERNANDES MD 02/01/25 1245 PATIENT NAME: JANICE AYALA KIA Electrocardiogram DATE OF : 52 PHYSICIAN: SRINIVASAN FERNANDES MD REPORT #: [id number] REPORT IS CONFIDENTIAL AND NOT TO BE RELEASED WITHOUT AUTHORIZATION
== END 2025-01-31 22:00 | disposition home or self-care (01) ==
LOC: ED 20:02
PROVIDERS: Family Medicine
DX: R07.89 Other chest pain (principal); K21.9 Gastro-esophageal reflux disease without esophagitis; I10 Essential (primary) hypertension; Z79.899 Other long term (current) drug therapy
CPT/HCPCS: 36415; 71045; 80053; 83735; 83880; 84484; 85025; 85060; 85610; 93005; 93010; 96374; 96375; 99285-25; J2270; J2405